=== PATIENT | male | born 1980 ===

== ENCOUNTER 2016-11-22 18:11 | Inpatient (IN) | payer MEDICAID, SELFPAY ==
[2016-11-22 18:11] VITALS: BMI 21.5
[2016-11-22] MEDS ORDERED: Iohexol 240 (50 ml) PO ONE (18:37)
[2016-11-22] MEDS ORDERED: Iohexol 240 (50 ml) ONE (18:51)
--- NOTE | 2016-11-22 19:00 | ED PDOC ---
HPI: Abdomen Time Seen by Provider: 11/22/16 18:23 Chief Complaint (Nursing): Abdominal Pain Chief Complaint (Provider): Abdominal Pain History Per: Patient History/Exam Limitations: no limitations Onset/Duration Of Symptoms: Days (x2 days) Current Symptoms Are (Timing): Still Present Additional Complaint(s): 36 y/o male with a past medical history of diverticulitis and pre-diabetes presents to the emergency department with a complaint of a lower abdominal pain x2 days. Associated with tactile fever as per history from . Patient states pain had worsened since onset, is constant, and similar to pain when he had diverticulitis. Reports taking Percocet and Amoxicillin (left over from previous conditions)with no relief. Denies nausea, vomiting, diarrhea, constipation, or urinary symptom. PMD: [facility] Past Medical History Reviewed: Historical Data, Nursing Documentation, Vital Signs Vital Signs: Last Vital Signs Temp 98.7 F 11/22/16 22:43 Pulse 88 11/22/16 22:43 Resp 20 11/22/16 22:43 BP 135/82 11/22/16 22:43 Pulse Ox 98 11/22/16 21:33 - Medical History PMH: Diabetes (Border line), Diverticulitis, Migraine Denies: HIV, Hypercholesterolemia, Chronic Kidney Disease - Surgical History Surgical History: No Surg Hx - Family History Family History: States: Diabetes - Social History Current smoker - smoking cessation education provided: No Alcohol: None Drugs: Denies - Home Medications Home Medications: Ambulatory Orders Medication Instructions Recorded No Known Home Med 11/22/16 - Allergies Allergies/Adverse Reactions: Allergies Allergy/AdvReac Type Severity Reaction Status Date / Time FISH Allergy RASH Verified 11/22/16 18:18 Fish Containing Products Allergy RASH Verified 11/22/16 18:18 Review of Systems ROS Statement: Except As Marked, All Systems Reviewed And Found Negative Constitutional: Positive for: Fever (Tactile) Gastrointestinal: Positive for: Abdominal Pain (Lower). Negative for: Vomiting , Diarrhea, Constipation Genitourinary Male: Negative for: Dysuria, Frequency, Incontinence, Hematuria Physical Exam - Reviewed Nursing Documentation Reviewed: Yes Vital Signs Reviewed: Yes - Physical Exam Appears: Positive for: Well, Non-toxic, In Acute Distress (Mild painful distress ) Head Exam: Positive for: ATRAUMATIC, NORMOCEPHALIC Skin: Positive for: Normal Color, Warm, Dry ENT: Positive for: Normal ENT Inspection. Negative for: Pharyngeal Erythema Neck: Positive for: Normal, Supple Cardiovascular/Chest: Positive for: Regular Rate, Rhythm. Negative for: Tachycardia Respiratory: Positive for: Normal Breath Sounds. Negative for: Accessory Muscle Use, Respiratory Distress Gastrointestinal/Abdominal: Positive for: Soft, Tenderness (Tenderness to the suprapubic region and lower quadrant bilaterally), Guarding (Diffuse Voluntary) . Negative for: Mass, Distended, Rebound Extremity: Positive for: Normal ROM. Negative for: Pedal Edema Neurologic/Psych: Positive for: Alert, Oriented - Laboratory Results Result Diagrams: 11/22/16 18:55 11/22/16 18:55 - ECG O2 Sat by Pulse Oximetry: 98 (RA) Pulse Ox Interpretation: Normal Medical Decision Making Medical Decision Making: : Time: 18:23 Initial impression: Abdominal Pain differential include but not limited to diverticulitis, appendicitis, colitis, and urinary tract infection. Initial plan: --Abd Pelvis IV CT --COMP Metabolic Panel --Lact Acid, Plasma Stat --Lipase Stat --ED urine Dipstick (POC) --CBC w/ differential --Partial Thromboplastin Time (COAG) --Prothrombin Time (COAG) --Omnipaque 50 mL --Toradol 30 mg IV --Blood Culture Stat --IV Insertion Accession No. : [id number] Patient Name / ID : PAM LINDO / [id number] Exam Date : 11/22/2016 20:48:59 ( Approved ) Study Comment : Sex / Age : M / 36Y Creator : Indra Manzano MD Dictator : Therapeutic Massage Technician : Insurance Underwriting Assistant : Indra Manzano MD Approver2 : Report Date : 11/22/2016 20:59:00 My Comment : [facility] Division of Radiology [address] [place] [address] Tel. no. Patient Name: BELGICA OROZCO Pt. Address: [address] [place] [address] Rec #: [id number] [place] [address]: Shiv MELENDEZ, Georgiana Fair Pt CELL Order Location: ALFONSO : 1980 Male Age: 36 Order #: [id number] Reason for exam: abd pain CT Scan ABD PELVIS IV CONTRAST ONLY Exam Date: 11/22/16 This imaging exam was performed at [facility] ADDENDUM Addendum created by Indra Manzano MD on 11/22/2016 9:04:44 PM EDT Kidneys and ureters: Too small to characterize lesion within RIGHT kidney. No hydronephrosis. Initial report created on 11/22/2016 8:59:36 PM EDT EXAM: CT Abdomen and Pelvis With Intravenous Contrast CLINICAL HISTORY: 36 years old, male; Pain; Abdominal pain; Other: Bilateral lower abd pain TECHNIQUE: Axial computed tomography images of the abdomen and pelvis with intravenous contrast. This CT exam was performed using one or more of the following dose reduction techniques: automated exposure control, adjustment of the mA and/or kV according to patient size, and/or use of iterative reconstruction technique. Coronal and sagittal reformatted images were created and reviewed. CONTRAST: 100 mL of [id number] administered intravenously. COMPARISON: No relevant prior studies available. FINDINGS: Lower thorax: Mild atelectasis. ABDOMEN: Liver: Mild fatty infiltration. Too small to characterize lesion. Gallbladder and bile ducts: No calcified stones. No ductal dilation. Pancreas: No ductal dilation. No mass. Spleen: No splenomegaly. Adrenals: No mass. Kidneys and ureters: No mass. No hydronephrosis. Stomach and bowel: Few diverticula within sigmoid colon. Mild mural thickening of short segment of proximal sigmoid colon. Xtuu-aq-[id number] stranding within adjacent fat. No obstruction. Appendix: Normal caliber. No inflammation. PELVIS: Bladder: Unremarkable. Reproductive: Unremarkable as visualized. ABDOMEN and PELVIS: Intraperitoneal space: No significant fluid collection. No free air. Bones/joints: No acute fracture. Soft tissues: Unremarkable. Vasculature: Unremarkable. No abdominal aortic aneurysm. Lymph nodes: No pathologically enlarged lymph nodes. IMPRESSION: 1. Findings compatible with acute diverticulitis of sigmoid colon. Recommend endoscopy following resolution. 2. Incidental/non-acute findings are described above. Addendum Dictated By: Indra Manzano MD Addendum Dictated Date Time:11/22/1602/02/2104 Addendum Signed by:Indra Manzano MD Addendum signed Date Time: 11/22/162103 Addendum Transcribed By: PAVAN Addendum Transcribed Date Time: 11/22/1602/02/2104 AC02/VALERIO EXAM: CT Abdomen and Pelvis With Intravenous Contrast CLINICAL HISTORY: 36 years old, male; Pain; Abdominal pain; Other: Bilateral lower abd pain TECHNIQUE: Axial computed tomography images of the abdomen and pelvis with intravenous contrast. This CT exam was performed using one or more of the following dose reduction techniques: automated exposure control, adjustment of the mA and/or kV according to patient size, and/or use of iterative reconstruction technique. Coronal and sagittal reformatted images were created and reviewed. CONTRAST: 100 mL of [id number] administered intravenously. COMPARISON: No relevant prior studies available. FINDINGS: Lower thorax: Mild atelectasis. ABDOMEN: Liver: Mild fatty infiltration. Too small to characterize lesion. Gallbladder and bile ducts: No calcified stones. No ductal dilation. Pancreas: No ductal dilation. No mass. Spleen: No splenomegaly. Adrenals: No mass. Kidneys and ureters: No mass. No hydronephrosis. Stomach and bowel: Few diverticula within sigmoid colon. Mild mural thickening of short segment of proximal sigmoid colon. Xjef-yv-eyvuqzox stranding within adjacent fat. No obstruction. Appendix: Normal caliber. No inflammation. PELVIS: Bladder: Unremarkable. Reproductive: Unremarkable as visualized. ABDOMEN and PELVIS: Intraperitoneal space: No significant fluid collection. No free air. Bones/joints: No acute fracture. Soft tissues: Unremarkable. Vasculature: Unremarkable. No abdominal aortic aneurysm. Lymph nodes: No pathologically enlarged lymph nodes. IMPRESSION: 1. Findings compatible with acute diverticulitis of sigmoid colon. Recommend endoscopy following resolution. 2. Incidental/non-acute findings are described above. Dictated By: Indra Manzano MD Dictated Date/Time: 11/22/162058 Signed By: Indra Manzano MD Date Signed: 2058 Transcribed By: PAVAN Transcribe Date/Time : 11/22/162058 ACYP02/VRD On reeval pt persists, especially with palpation, movement. DW pt findings. Pt to be hospitalized for diverticulitis with severe pain. SORAYA Ndiaye FP resident. Scribe Attestation: Documented by Ana Leal, acting as a scribe for Georgiana Chaney MD. Provider Scribe Attestation: All medical record entries made by the Scribe were at my direction and personally dictated by me. I have reviewed the chart and agree that the record accurately reflects my personal performance of the history, physical exam, medical decision making, and the department course for this patient. I have also personally directed, reviewed, and agree with the discharge instructions and disposition. ED OBSERVATION Date of observation admission: 11/22/16 Time of observation admission: 18:41 - Observation admission statement Patient is being placed in observation because:: Abdominal pain. - Goals of Observation Goals of observation are:: extensive] work-up and serial abdominal exam. Disposition - Clinical Impression Clinical Impression: Abdominal pain, Diverticulitis Counseled Patient/Family Regarding: Studies Performed, Diagnosis - Disposition Disposition Time: 18:45 Condition: FAIR - Pt Status Changed To: Hospital Disposition Of: Observation - POA Present On Arrival: None
[2016-11-22 19:04] LABS: BASO # 0.1 K/uL (0.0-0.2); BASO % 0.5 % (0.0-2.0); EOS # 0.3 K/uL (0.0-0.7); EOS % 2.2 % (0.0-4.0); HEMATOCRIT 42.4 % (35.0-51.0); LYMPH # 2.5 K/uL (1.0-4.3); LYMPH % 18.6 % (20.0-40.0); MEAN CELL VOLUME 82.4 fl (80.0-94.0); MEAN CORPUSCULAR HEMOGLOBIN 28.4 pg (27.0-31.0); MEAN CORPUSCULAR HGB CONC 34.4 g/dL (33.0-37.0); MEAN PLATELET VOLUME 9.4 fl (7.2-11.7); MONO # 1.5 K/uL (0.0-0.8); MONO % 11.3 % (0.0-10.0); NEUT # 9.2 K/uL (1.8-7.0); NEUT % 67.4 % (50.0-75.0); NRBC % 0.1 % (0.0-0.0); RED CELL DISTRIBUTION WIDTH 13.5 % (11.5-14.5); WHITE BLOOD COUNT 13.6 K/uL (4.8-10.8)
[2016-11-22] MEDS ORDERED: Ampicillin/Sulbactam 3 GM in Sodium Chloride 0.9% 100 ML IVPB STA (19:13)
[2016-11-22 19:17] LABS: ALB/GLOB RATIO 1.2 (1.0-2.1); ALKALINE PHOSPHATASE 88 U/L (38-126); ALT/SGPT 37 U/L (21-72); AST/SGOT 22 U/L (17-59); BILIRUBIN,TOTAL 0.3 mg/dl (0.2-1.3); BLOOD UREA NITROGEN 17 mg/dl (9-20); CARBON DIOXIDE 25 mmol/L (22-30); CHLORIDE 104 mmol/L (98-107); GFR AFRICAN-AMERICAN > 60; GLUCOSE,RANDOM 100 mg/dL (75-110); LIPASE 34 U/L (23-300); POTASSIUM 3.8 MMOL/L (3.6-5.0); SODIUM 142 mmol/l (132-148); TOTAL PROTEIN 7.6 G/DL (6.3-8.2)
[2016-11-22] MEDS ORDERED: Sodium Chloride 0.9% 50 ML IV ONE (19:24)
[2016-11-22] MEDS ORDERED: Iohexol 300 100 ML IJ ONE (19:24)
[2016-11-22 19:49] LABS: PARTIAL THROMBOPLASTIN TIME 27.5 SECONDS (23.3-32.5)
--- NOTE | 2016-11-22 21:00 | CT ---
EXAM: CT Abdomen and Pelvis With Intravenous Contrast CLINICAL HISTORY: 36 years old, male; Pain; Abdominal pain; Other: Bilateral lower abd pain TECHNIQUE: Axial computed tomography images of the abdomen and pelvis with intravenous contrast. This CT exam was performed using one or more of the following dose reduction techniques: automated exposure control, adjustment of the mA and/or kV according to patient size, and/or use of iterative reconstruction technique. Coronal and sagittal reformatted images were created and reviewed. CONTRAST: 100 mL of [id number] administered intravenously. COMPARISON: No relevant prior studies available. FINDINGS: Lower thorax: Mild atelectasis. ABDOMEN: Liver: Mild fatty infiltration. Too small to characterize lesion. Gallbladder and bile ducts: No calcified stones. No ductal dilation. Pancreas: No ductal dilation. No mass. Spleen: No splenomegaly. Adrenals: No mass. Kidneys and ureters: No mass. No hydronephrosis. Stomach and bowel: Few diverticula within sigmoid colon. Mild mural thickening of short segment of proximal sigmoid colon. Vzzi-wx-brovazbk stranding within adjacent fat. No obstruction. Appendix: Normal caliber. No inflammation. PELVIS: Bladder: Unremarkable. Reproductive: Unremarkable as visualized. ABDOMEN and PELVIS: Intraperitoneal space: No significant fluid collection. No free air. Bones/joints: No acute fracture. Soft tissues: Unremarkable. Vasculature: Unremarkable. No abdominal aortic aneurysm. Lymph nodes: No pathologically enlarged lymph nodes. IMPRESSION: 1. Findings compatible with acute diverticulitis of sigmoid colon. Recommend endoscopy following resolution. 2. Incidental/non-acute findings are described above.
[2016-11-22] MEDS ORDERED: Sodium Chloride 0.9% 1,000 ML IV STA (21:36)
--- NOTE | 2016-11-22 22:48 | CP.PCM.HP ---
History of Present Illness - History of Present Illness History of Present Illness: Pt is a 36 y/o male with a past medical history of diverticulitis (3yrs ago) and pre-diabetes presents to the emergency department with a complaint of a lower abdominal pain for the past 2 days. Associated with tactile fever as per history from . Patient states pain had worsened since onset, is constant, and similar to pain when he had diverticulitis. states he tooks some Percocet and Amoxicillin (left over from previous conditions)with no relief. Denies nausea, vomiting, diarrhea, constipation, or urinary symptom PCP- [facility] Present on Admission - Present on Admission Any Indicators Present on Admission: No Review of Systems - Review of Systems All systems: reviewed and no additional remarkable complaints except Review of Systems: Per HPI Past Patient History - Infectious Disease Hx of Infectious Diseases: None - Tetanus Immunizations Tetanus Immunization: Unknown - Past Medical History & Family History Past Medical History?: Yes - Past Social History Alcohol: None Drugs: Denies - CARDIAC Hx Cardiac Disorders: No - PULMONARY Hx Respiratory Disorders: No - NEUROLOGICAL Hx Neurological Disorder: Yes - HEENT Hx HEENT Problems: No - RENAL Hx Chronic Kidney Disease: No - ENDOCRINE/METABOLIC Hx Endocrine Disorders: No - HEMATOLOGICAL/ONCOLOGICAL Hx Blood Disorders: No - INTEGUMENTARY Hx Dermatological Problems: No - MUSCULOSKELETAL/RHEUMATOLOGICAL Hx Musculoskeletal Disorders: No - GASTROINTESTINAL Hx Diverticulitis: Yes - GENITOURINARY/GYNECOLOGICAL Hx Genitourinary Disorders: No - PSYCHIATRIC Hx Psychophysiologic Disorder: No - SURGICAL HISTORY Hx Surgeries: No - ANESTHESIA Hx Anesthesia: No Meds Allergies/Adverse Reactions: Allergies Allergy/AdvReac Type Severity Reaction Status Date / Time FISH Allergy RASH Verified 11/22/16 18:18 Fish Containing Products Allergy RASH Verified 11/22/16 18:18 Physical Exam - Constitutional Appears: Non-toxic, No Acute Distress - Head Exam Head Exam: NORMOCEPHALIC - Eye Exam Eye Exam: Normal appearance - ENT Exam ENT Exam: Mucous Membranes Moist - Respiratory Exam Respiratory Exam: Clear to Auscultation Bilateral, NORMAL BREATHING PATTERN. absent: Rhonchi, Wheezes - Cardiovascular Exam Cardiovascular Exam: REGULAR RHYTHM, +S1, +S2 - GI/Abdominal Exam GI & Abdominal Exam: Normal Bowel Sounds, Soft, Tenderness. absent: Distended, Guarding - Extremities Exam Extremities exam: Negative for: calf tenderness, pedal edema - Neurological Exam Neurological exam: Alert, CN II-XII Intact, Oriented x3 Results - Vital Signs Recent Vital Signs: Last Vital Signs Temp 98.7 F 11/22/16 22:43 Pulse 88 11/22/16 22:43 Resp 20 11/22/16 22:43 BP 135/82 11/22/16 22:43 Pulse Ox 98 11/22/16 21:33 - Labs Result Diagrams: 11/22/16 18:55 11/22/16 18:55 Labs: Laboratory Results - last 24 hr 11/22/16 11/22/16 11/22/16 18:55 18:55 18:55 WBC 13.6 H RBC 5.14 Hgb 14.6 Hct 42.4 MCV 82.4 MCH 28.4 MCHC 34.4 RDW 13.5 Plt Count 285 MPV 9.4 Neut % (Auto) 67.4 Lymph % (Auto) 18.6 L Rincon % (Auto) 11.3 H Eos % (Auto) 2.2 Baso % (Auto) 0.5 Neut # 9.2 H Lymph # 2.5 Rincon # 1.5 H Eos # 0.3 Baso # 0.1 PT INR APTT Sodium 142 Potassium 3.8 Chloride 104 Carbon Dioxide 25 Anion Gap 17 BUN 17 Creatinine 0.9 Est GFR ( Amer) > 60 Est GFR (Non-Af Amer) > 60 Random Glucose 100 Lactic Acid 1.1 Calcium 9.0 Total Bilirubin 0.3 AST 22 ALT 37 Alkaline Phosphatase 88 Total Protein 7.6 Albumin 4.2 Globulin 3.4 Albumin/Globulin Ratio 1.2 Lipase 34 11/22/16 18:55 WBC RBC Hgb Hct MCV MCH MCHC RDW Plt Count MPV Neut % (Auto) Lymph % (Auto) Rincon % (Auto) Eos % (Auto) Baso % (Auto) Neut # Lymph # Rincon # Eos # Baso # PT 9.9 INR 0.95 APTT 27.5 Sodium Potassium Chloride Carbon Dioxide Anion Gap BUN Creatinine Est GFR ( Amer) Est GFR (Non-Af Amer) Random Glucose Lactic Acid Calcium Total Bilirubin AST ALT Alkaline Phosphatase Total Protein Albumin Globulin Albumin/Globulin Ratio Lipase Assessment & Plan - Assessment and Plan (Free Text) Assessment: 36 y/o with previous history of diverticulitis being admitted for diverticulitis with no associated sepsis Plan: Diverticulitis CT imaging positive for diverticulitis in sigmoid colon Started on Cipro/flagyl received a dose of Ampicillin in ED IV fluids- received a bolus in ED, then D5NS at 100cc/hr Pain control with Toradol 30 Q6hr for pain level 8-10, 15 Q6hrs pain level 4-7 Repeat Cbc in the am Diet- NPO, till pain resolve Dvt prophylaxis- SCDs (low risk)
[2016-11-23] MEDS: metroNIDAZOLE 500mg/100ml NS 100 ML IVPB SCH ×3 (00:30→16:27)
[2016-11-23 06:21] LABS: HEMATOCRIT 40.5 % (35.0-51.0); MEAN CELL VOLUME 82.6 fl (80.0-94.0); MEAN CORPUSCULAR HEMOGLOBIN 28.3 pg (27.0-31.0); MEAN CORPUSCULAR HGB CONC 34.3 g/dL (33.0-37.0); RED CELL DISTRIBUTION WIDTH 13.5 % (11.5-14.5); WHITE BLOOD COUNT 12.8 K/uL (4.8-10.8)
[2016-11-23] MEDS: Dextrose 5%/0.9% NS 1,000 ML IV SCH ×3 (06:34→20:58)
[2016-11-23] MEDS ORDERED: levoFLOXacin 750 mg in D5W 750 MG/150 ML BAG IVPB SCH (09:00)
[2016-11-23] MEDS ORDERED: levoFLOXacin 750 mg in D5W 150 ML BAG IVPB SCH (09:00)
[2016-11-23] MEDS ORDERED: Lidocaine 5% Patch TD PRN (11:49)
--- NOTE | 2016-11-23 12:53 | CP.PCM.PN ---
Subjective - Date & Time of Evaluation Date of Evaluation: 11/23/16 Time of Evaluation: 07:15 - Subjective Subjective: This is a 36 y/o with history of diverticulosis with 2 previous episodes of diverticulitis admitted for recurrent acute diverticultis IV antibiotics management. Patient was seen and examined at bedside this morning. Still complaining of lower abdominal pain, mostly in his left lower abdominal, 3/10, and constant. Patient reports that the pain is worse with self- palpation of LLQ, increasing intensity to 7/10. Denies nausea, vomiting, chills, diarrheas or other complains. Objective - Vital Signs/Intake and Output Vital Signs (last 24 hours): Temp Pulse Resp BP Pulse Ox 98.7 F 91 H 20 133/81 100 11/23/16 07:27 11/23/16 07:27 11/23/16 07:27 11/23/16 07:27 11/23/16 07:27 - Medications Medications: Current Medications Metronidazole (Flagyl 500mg/100ml Ns) 100 mls @ 100 mls/hr IVPB Q8 BRENDA Last Admin: 11/23/16 08:24 Dose: 100 mls/hr Ciprofloxacin (Cipro 400mg/200ml Dsw) 400 mg in 200 mls @ 200 mls/hr IVPB Q12 BRENDA Dextrose/Sodium Chloride (Dextrose 5%/0.9% Ns 1000 Ml) 1,000 mls @ 125 mls/hr IV .Q8H [facility] Stop: 11/23/16 23:24 Last Admin: 11/23/16 06:34 Dose: Not Given Ketorolac Tromethamine (Toradol) 30 mg IVP Q6 PRN PRN Reason: Pain, severe (8-10) Ketorolac Tromethamine (Toradol) 15 mg IVP Q6 PRN PRN Reason: Pain, moderate (4-7) Lidocaine (Lidoderm) 1 ea TD DAILY [facility] - Labs Labs: 11/23/16 05:35 11/22/16 18:55 PT 9.9 SECONDS (9.6-11.2) 11/22/16 18:55 INR 0.95 (0.92-1.08) 11/22/16 18:55 APTT 27.5 SECONDS (23.3-32.5) 11/22/16 18:55 - Constitutional Appears: Non-toxic, No Acute Distress - Eye Exam Eye Exam: Normal appearance - ENT Exam ENT Exam: Mucous Membranes Moist - Respiratory Exam Respiratory Exam: Clear to Ausculation Bilateral, NORMAL BREATHING PATTERN - Cardiovascular Exam Cardiovascular Exam: REGULAR RHYTHM, +S1, +S2 - GI/Abdominal Exam GI & Abdominal Exam: Soft, Tenderness (Moderate tender to palpation of LLQ, RLQ and Hypogastrium, but no rigidity or guarding noted, no rebound tenderness), Normal Bowel Sounds - Extremities Exam Extremities Exam: Normal Inspection. absent: Calf Tenderness, Full ROM - Back Exam Back Exam: absent: CVA tenderness (L), CVA tenderness (R) - Neurological Exam Neurological Exam: Alert, Awake, Oriented x3 - Psychiatric Exam Psychiatric exam: Normal Affect, Normal Mood Assessment and Plan - Assessment and Plan (Free Text) Assessment: This is a 36 y/o Male with PMHx of diverticulosis, and recurrent episodes of acute diverticulitis who was admitted for IV antibiotics to manage third episode of diverticulitis. Plan: Plan: Acute diverticulitis -Afebrile, no Tachycardic -Persistent leukocytosis CBC -NPO for now, will consider to advance diet base on clinical improvement -Abdominal Ct scan showed : acute diverticulitis of sigmoid colon -IV Hydration Dextrose 5%/NS 0.9 % -c/w Cipro 400 mg IV Q12 hrs Day #1 -c/w Flagyl 500 IV Q8 hours Day #1 -C/w with pain management w/Toradol PRN -F/U blood culture -F/U CBC, and BMP on 11/24/16 -General surgery consult appreciated due to recurrent acute diverticulitis -Consider GI consult and General surgery consult as outpatient for further management DVT prophylaxis SCDs while in bed, patient is ambulating, and low risk for DVT
[2016-11-23] MEDS: Ciprofloxacin 400mg/200ml D5W 400 MG/200 ML BAG IVPB SCH ×2 (12:56→20:58)
[2016-11-23] MEDS: Lidocaine 5% Patch TD SCH (12:57)
--- NOTE | 2016-11-23 13:59 | CP.PCM.CON ---
<Meliza Astorga - Last Filed: 11/23/16 13:56> History of Present Illness - History of Present Illness History of Present Illness: General Surgery - Dr. White 36 yo M w/ hx of diverticulitis 3 years ago, presents w/ LLQ abdominal pain since Wednesday. Pt states the pain came on gradually, was located in the LLQ and suprapubic region, non-radiating, 8/10 at worst. He describes it as similar to his previous episode of diverticulitis. Pt also complains of a headache and admits to a subjective fever at home. He denies any Nausea/Vomiting, Chills, Diarrhea, Constipation, Dysuria, Hematuria, Hematochezia. He states last BM was this morning and was normal. PMH: pre-diabetic, Diverticulitis 3 yrs ago PSH: Colonoscopy in July 2016 which showed internal hemorrhoids Allergy to Fish Review of Systems - Review of Systems All systems: reviewed and no additional remarkable complaints except (as per HPI ) Past Patient History - Infectious Disease Hx of Infectious Diseases: None - Tetanus Immunizations Tetanus Immunization: Unknown - Past Medical History & Family History Past Medical History?: Yes - Past Social History Smoking Status: Never Smoked - CARDIAC Hx Cardiac Disorders: No - PULMONARY Hx Respiratory Disorders: No - NEUROLOGICAL Hx Neurological Disorder: Yes - HEENT Hx HEENT Problems: No - RENAL Hx Chronic Kidney Disease: No - ENDOCRINE/METABOLIC Hx Endocrine Disorders: Yes Other/Comment: pre -diabetes - HEMATOLOGICAL/ONCOLOGICAL Hx Blood Disorders: No - INTEGUMENTARY Hx Dermatological Problems: No - MUSCULOSKELETAL/RHEUMATOLOGICAL Hx Falls: No - GASTROINTESTINAL Hx Diverticulitis: Yes - GENITOURINARY/GYNECOLOGICAL Hx Genitourinary Disorders: No - PSYCHIATRIC Hx Substance Use: No - SURGICAL HISTORY Hx Surgeries: No - ANESTHESIA Hx Anesthesia: No Hx Anesthesia Reactions: No Meds Allergies/Adverse Reactions: Allergies Allergy/AdvReac Type Severity Reaction Status Date / Time FISH Allergy RASH Verified 11/22/16 18:18 Fish Containing Products Allergy RASH Verified 11/22/16 18:18 - Medications Medications: Current Medications Metronidazole (Flagyl 500mg/100ml Ns) 100 mls @ 100 mls/hr IVPB Q8 [facility] Last Admin: 11/23/16 08:24 Dose: 100 mls/hr Ciprofloxacin (Cipro 400mg/200ml Dsw) 400 mg in 200 mls @ 200 mls/hr IVPB Q12 [facility] Last Admin: 11/23/16 12:56 Dose: 200 mls/hr Dextrose/Sodium Chloride (Dextrose 5%/0.9% Ns 1000 Ml) 1,000 mls @ 125 mls/hr IV .Q8H [facility] Stop: 11/23/16 23:24 Last Admin: 11/23/16 06:34 Dose: Not Given Ketorolac Tromethamine (Toradol) 30 mg IVP Q6 PRN PRN Reason: Pain, severe (8-10) Ketorolac Tromethamine (Toradol) 15 mg IVP Q6 PRN PRN Reason: Pain, moderate (4-7) Lidocaine (Lidoderm) 1 ea TD DAILY [facility] Last Admin: 11/23/16 12:57 Dose: 1 ea Physical Exam - Constitutional Appears: Well, No Acute Distress - Head Exam Head Exam: ATRAUMATIC, NORMAL INSPECTION, NORMOCEPHALIC - Eye Exam Eye Exam: EOMI, Normal appearance - ENT Exam ENT Exam: Mucous Membranes Moist - Respiratory Exam Respiratory Exam: NORMAL BREATHING PATTERN. absent: Respiratory Distress - Cardiovascular Exam Cardiovascular Exam: REGULAR RHYTHM - GI/Abdominal Exam GI & Abdominal Exam: Distended (mild), Guarding, Rebound, Soft, Tenderness (LLQ , RLQ and Suprapubic region). absent: Hernia, Rigid - Neurological Exam Neurological exam: Alert, Oriented x3 - Psychiatric Exam Psychiatric exam: Normal Affect, Normal Mood - Skin Skin Exam: Dry Results - Vital Signs Recent Vital Signs: Last Vital Signs Temp 98.7 F 11/23/16 07:27 Pulse 91 H 11/23/16 07:27 Resp 20 11/23/16 07:27 BP 133/81 11/23/16 07:27 Pulse Ox 100 11/23/16 07:27 - Labs Result Diagrams: 11/23/16 05:35 11/22/16 18:55 Labs: Laboratory Results - last 24 hr 11/22/16 11/22/16 11/22/16 18:55 18:55 18:55 WBC 13.6 H RBC 5.14 Hgb 14.6 Hct 42.4 MCV 82.4 MCH 28.4 MCHC 34.4 RDW 13.5 Plt Count 285 MPV 9.4 Neut % (Auto) 67.4 Lymph % (Auto) 18.6 L Mcclain % (Auto) 11.3 H Eos % (Auto) 2.2 Baso % (Auto) 0.5 Neut # 9.2 H Lymph # 2.5 Mcclain # 1.5 H Eos # 0.3 Baso # 0.1 PT INR APTT Sodium 142 Potassium 3.8 Chloride 104 Carbon Dioxide 25 Anion Gap 17 BUN 17 Creatinine 0.9 Est GFR ( Amer) > 60 Est GFR (Non-Af Amer) > 60 Random Glucose 100 Lactic Acid 1.1 Calcium 9.0 Total Bilirubin 0.3 AST 22 ALT 37 Alkaline Phosphatase 88 Total Protein 7.6 Albumin 4.2 Globulin 3.4 Albumin/Globulin Ratio 1.2 Lipase 34 11/22/16 11/23/16 18:55 05:35 WBC 12.8 H RBC 4.91 Hgb 13.9 Hct 40.5 MCV 82.6 MCH 28.3 MCHC 34.3 RDW 13.5 Plt Count 255 MPV Neut % (Auto) Lymph % (Auto) Mcclain % (Auto) Eos % (Auto) Baso % (Auto) Neut # Lymph # Mcclain # Eos # Baso # PT 9.9 INR 0.95 APTT 27.5 Sodium Potassium Chloride Carbon Dioxide Anion Gap BUN Creatinine Est GFR ( Amer) Est GFR (Non-Af Amer) Random Glucose Lactic Acid Calcium Total Bilirubin AST ALT Alkaline Phosphatase Total Protein Albumin Globulin Albumin/Globulin Ratio Lipase - Imaging and Cardiology CT scan - abdomen Status: Image reviewed by me, Report reviewed by me Assessment & Plan - Assessment and Plan (Free Text) Assessment: 36 yo M w/ recurrent acute diverticulitis, uncomplicated -Maintain NPO, IVF -IV Abx - Cipro/Flagyl -Pain control -Poss. Clear liquids tomorrow if improving -Recc. GI consult for F/U, may need repeat colonoscopy -No acute surgical plans, will follow SORAYA Astorga PGY2 <Guillermo White - Last Filed: 11/25/16 22:04> Results - Vital Signs Recent Vital Signs: Last Vital Signs Temp 98.1 F 11/25/16 08:08 Pulse 71 11/25/16 08:08 Resp 20 11/25/16 08:08 BP 134/90 11/25/16 08:08 Pulse Ox 99 11/25/16 08:08 - Labs Result Diagrams: 11/25/16 05:45 11/25/16 05:45 Labs: Laboratory Results - last 24 hr 11/25/16 11/25/16 05:45 05:45 WBC 8.3 RBC 4.89 Hgb 13.6 Hct 41.3 MCV 84.4 MCH 27.9 MCHC 33.0 RDW 13.3 Plt Count 301 Potassium 3.8 Attending/Attestation - Attestation I have personally seen and examined this patient.: Yes I have fully participated in the care of the patient.: Yes I have reviewed all pertinent clinical information: Yes Notes (Text): 11/25/16 22:03 Pt was seen and examined at bedside on 11/24/16 Agree with above note and assessment. Pt with Sigmoid Diverticulitis Improving clinically C.w current mx Plan d.w pt in detail We will f.u
[2016-11-24] MEDS: metroNIDAZOLE 500mg/100ml NS 100 ML IVPB SCH ×3 (01:21→16:23)
[2016-11-24] MEDS: Dextrose 5%/0.9% NS 1,000 ML IV SCH (01:47)
[2016-11-24 06:51] LABS: MEAN CELL VOLUME 83.1 fl (80.0-94.0); MEAN CORPUSCULAR HEMOGLOBIN 28.1 pg (27.0-31.0); MEAN CORPUSCULAR HGB CONC 33.8 g/dL (33.0-37.0); RED CELL DISTRIBUTION WIDTH 13.4 % (11.5-14.5); WHITE BLOOD COUNT 8.8 K/uL (4.8-10.8)
[2016-11-24 07:13] LABS: ALB/GLOB RATIO 1.4 (1.0-2.1); ALKALINE PHOSPHATASE 53 U/L (38-126); ALT/SGPT 29 U/L (21-72); AST/SGOT 20 U/L (17-59); BILIRUBIN,TOTAL 0.4 mg/dl (0.2-1.3); BLOOD UREA NITROGEN 10 mg/dl (9-20); CALCIUM 8.3 mg/dL (8.4-10.2); CARBON DIOXIDE 24 mmol/L (22-30); CHLORIDE 106 mmol/L (98-107); GFR AFRICAN-AMERICAN > 60; GLUCOSE,RANDOM 115 mg/dL (75-110); POTASSIUM 3.2 MMOL/L (3.6-5.0); SODIUM 144 mmol/l (132-148); TOTAL PROTEIN 6.4 G/DL (6.3-8.2)
--- NOTE | 2016-11-24 07:40 | CP.PCM.PN ---
<Alberto Stallworth - Last Filed: 11/24/16 07:36> Subjective - Date & Time of Evaluation Date of Evaluation: 11/24/16 Time of Evaluation: 07:37 - Subjective Subjective: General Surgery Progress Note For Dr. White This 36M was seen and examined this AM at bedside. Nurse reports no acute events overnight. Patient reports that he is no longer feeling pain. He required one dose of toradol overnight and it was due to a headache. He denies any fevers, chills, chest pain, SOB nausea vomiting or diarrhea. Objective - Vital Signs/Intake and Output Vital Signs (last 24 hours): Temp Pulse Resp BP Pulse Ox 98.5 F 73 19 136/83 98 11/24/16 00:56 11/24/16 00:56 11/24/16 00:56 11/24/16 00:56 11/24/16 00:56 - Medications Medications: Current Medications Acetaminophen (Tylenol 325mg Tab) 650 mg PO Q6 PRN PRN Reason: Pain, moderate (4-7) Metronidazole (Flagyl 500mg/100ml Ns) 100 mls @ 100 mls/hr IVPB Q8 [facility] Last Admin: 11/24/16 01:21 Dose: 100 mls/hr Ciprofloxacin (Cipro 400mg/200ml Dsw) 400 mg in 200 mls @ 200 mls/hr IVPB Q12 [facility] Last Admin: 11/23/16 20:58 Dose: 200 mls/hr Potassium Chloride (Potassium Chloride 10 Meq/100 Ml) 100 mls @ 100 mls/hr IVPB Q1 [facility] Stop: 11/24/16 09:59 Ketorolac Tromethamine (Toradol) 30 mg IVP Q6 PRN PRN Reason: Pain, severe (8-10) Last Admin: 11/24/16 01:50 Dose: 30 mg Ketorolac Tromethamine (Toradol) 15 mg IVP Q6 PRN PRN Reason: Pain, moderate (4-7) Last Admin: 11/23/16 16:39 Dose: 15 mg Lidocaine (Lidoderm) 1 ea TD DAILY [facility] Last Admin: 11/23/16 12:57 Dose: 1 ea - Labs Labs: 11/24/16 05:25 11/24/16 05:25 PT 9.9 SECONDS (9.6-11.2) 11/22/16 18:55 INR 0.95 (0.92-1.08) 11/22/16 18:55 APTT 27.5 SECONDS (23.3-32.5) 11/22/16 18:55 - Constitutional Appears: Non-toxic, No Acute Distress - Head Exam Head Exam: ATRAUMATIC, NORMOCEPHALIC - Eye Exam Eye Exam: EOMI - ENT Exam ENT Exam: Mucous Membranes Moist, Normal Exam - Respiratory Exam Respiratory Exam: NORMAL BREATHING PATTERN - Cardiovascular Exam Cardiovascular Exam: REGULAR RHYTHM - GI/Abdominal Exam GI & Abdominal Exam: Soft. absent: Firm, Guarding, Rigid, Tenderness - Neurological Exam Neurological Exam: Alert, Awake - Psychiatric Exam Psychiatric exam: Normal Affect, Normal Mood - Skin Skin Exam: Dry, Intact Assessment and Plan - Assessment and Plan (Free Text) Assessment: 36 yo M w/ recurrent acute diverticulitis, which is showing signs of resolution patient with potassium of 3.2 today -CLD -Mag level ordered 2 K-Riders -IV Abx -Cipro/Flagyl -Pain control -Recc. GI consult for F/U, may need repeat colonoscopy -No acute surgical plans, will follow SORAYA Stallworth PGY-7 <Guillermo White - Last Filed: 11/25/16 22:06> Objective - Vital Signs/Intake and Output Vital Signs (last 24 hours): Temp Pulse Resp BP Pulse Ox 98.1 F 71 20 134/90 99 11/25/16 08:08 11/25/16 08:08 11/25/16 08:08 11/25/16 08:08 11/25/16 08:08 - Labs Labs: 11/25/16 05:45 11/25/16 05:45 PT 9.9 SECONDS (9.6-11.2) 11/22/16 18:55 INR 0.95 (0.92-1.08) 11/22/16 18:55 APTT 27.5 SECONDS (23.3-32.5) 11/22/16 18:55 Attending/Attestation - Attestation I have personally seen and examined this patient.: Yes I have fully participated in the care of the patient.: Yes I have reviewed all pertinent clinical information, including history, physical exam and plan: Yes Notes (Text): 11/25/16 22:06 Pt was seen and examined at bedside on 11/24/16 Agree with above note and assessment.
[2016-11-24] MEDS: Lidocaine 5% Patch TD SCH (08:44)
[2016-11-24] MEDS: Potassium CL 10mEq/100ml 100 ML IVPB SCH ×2 (10:26→11:45)
[2016-11-24] MEDS: Ciprofloxacin 400mg/200ml D5W 400 MG/200 ML BAG IVPB SCH ×2 (10:27→21:13)
[2016-11-24] MEDS ORDERED: Potassium Chloride 40 mEq/30 ml LIQ UD PO ONE (10:58)
[2016-11-24] MEDS ORDERED: Potassium Chloride 20 mEq/15 ml LIQ UD PO ONE (11:15)
--- NOTE | 2016-11-24 15:49 | CP.PCM.PN ---
Subjective - Date & Time of Evaluation Date of Evaluation: 11/24/16 Time of Evaluation: 07:00 - Subjective Subjective: Patient was seen and examined at bedside this morning. Patient is still complaining of lower abdominal pain mostly localized in left side, however has decreased in intensity. Denies nausea, vomiting, chills, diarrheas, urinary symptoms at this evaluation.Reports two normal consistency bowel movements yesterday. Objective - Vital Signs/Intake and Output Vital Signs (last 24 hours): Temp Pulse Resp BP Pulse Ox 98.8 F 61 18 121/75 98 11/24/16 08:16 11/24/16 08:16 11/24/16 08:16 11/24/16 08:16 11/24/16 08:16 - Medications Medications: Current Medications Acetaminophen (Tylenol 325mg Tab) 650 mg PO Q6 PRN PRN Reason: Pain, moderate (4-7) Metronidazole (Flagyl 500mg/100ml Ns) 100 mls @ 100 mls/hr IVPB Q8 [facility] Last Admin: 11/24/16 08:44 Dose: 100 mls/hr Ciprofloxacin (Cipro 400mg/200ml Dsw) 400 mg in 200 mls @ 200 mls/hr IVPB Q12 [facility] Last Admin: 11/24/16 10:27 Dose: 200 mls/hr Ketorolac Tromethamine (Toradol) 30 mg IVP Q6 PRN PRN Reason: Pain, severe (8-10) Last Admin: 11/24/16 01:50 Dose: 30 mg Ketorolac Tromethamine (Toradol) 15 mg IVP Q6 PRN PRN Reason: Pain, moderate (4-7) Last Admin: 11/23/16 16:39 Dose: 15 mg Lidocaine (Lidoderm) 1 ea TD DAILY [facility] Last Admin: 11/24/16 08:44 Dose: 1 ea - Labs Labs: 11/24/16 05:25 11/24/16 05:25 PT 9.9 SECONDS (9.6-11.2) 11/22/16 18:55 INR 0.95 (0.92-1.08) 11/22/16 18:55 APTT 27.5 SECONDS (23.3-32.5) 11/22/16 18:55 - Constitutional Appears: Non-toxic, No Acute Distress - Head Exam Head Exam: NORMAL INSPECTION - ENT Exam ENT Exam: Mucous Membranes Moist - Respiratory Exam Respiratory Exam: Clear to Ausculation Bilateral, NORMAL BREATHING PATTERN - Cardiovascular Exam Cardiovascular Exam: RRR, +S1, +S2 - GI/Abdominal Exam GI & Abdominal Exam: Soft, Tenderness (mild tender to palpation of LLQ, RLQ and hypogastrium, but no rebound tenderness noted), Normal Bowel Sounds. absent: Distended, Rigid - Extremities Exam Extremities Exam: Normal Inspection. absent: Calf Tenderness, Pedal Edema - Back Exam Back Exam: absent: CVA tenderness (L), CVA tenderness (R) - Neurological Exam Neurological Exam: Alert, Awake, Oriented x3 - Psychiatric Exam Psychiatric exam: Normal Affect, Normal Mood - Skin Skin Exam: Dry, Intact, Normal Color Assessment and Plan - Assessment and Plan (Free Text) Assessment: This is a 36 y/o Male with PMHx of diverticulosis, and recurrent episodes of acute diverticulitis who was admitted for IV antibiotics to manage third episode of diverticulitis, improving but still complaining of pain. Plan: Acute diverticulitis -Afebrile, no Tachycardic -resolved previous leukocytosis seen in CBC on admission. WBC:8.8 on 11/24/16 -Advance to liquid diet for breakfast, and monitor tolerance and continue advancing diet as tolerated -c/w Cipro 400 mg IV Q12 hrs Day #1 -c/w Flagyl 500 IV Q8 hours Day #1 -C/w with pain management w/Toradol PRN -discontinue IV Hydration Dextrose 5%/NS 0.9 % if PO tolerance -F/U blood culture Abdominal Ct scan showed : acute diverticulitis of sigmoid colon -General surgery consult appreciated recommended continue with IV antibiotics and GI consult for colonoscopy as outpatient Hypokalemia most like secondary to N/V -Asymptomatic - BMP on 11/24/16 : K+ 3.2 -Potassium 40 MEQ PO once -F/U repeat K+ on 11/25/16 -Magnesium WNL DVT prophylaxis [id number] mg SC daily
--- NOTE | 2016-11-24 17:04 | CP.PCM.PCO ---
Assessment/Plan - Assessment and Plan (Free Text) Assessment: I saw and evaluated the patient. I discussed the case with the resident and agree with the findings and plan as documented in the resident's note. in the room. Pt says he continues to have pain. I observed pt grimacing as he turned over in bed. pt continues to have LLQ pain upon palpation. Pt even had pain when I pushed with my stereoscope. Cont iv abx and liquid diet.
[2016-11-24] MEDS: Enoxaparin 40 mg Syringe SC SCH ×2 (21:13→21:17)
[2016-11-25 01:32] VITALS: TEMP 98.1
[2016-11-25] MEDS: metroNIDAZOLE 500mg/100ml NS 100 ML IVPB SCH ×2 (01:32→08:52)
[2016-11-25 07:02] LABS: HEMATOCRIT 41.3 % (35.0-51.0); MEAN CELL VOLUME 84.4 fl (80.0-94.0); MEAN CORPUSCULAR HEMOGLOBIN 27.9 pg (27.0-31.0); RED CELL DISTRIBUTION WIDTH 13.3 % (11.5-14.5); WHITE BLOOD COUNT 8.3 K/uL (4.8-10.8)
--- NOTE | 2016-11-25 07:59 | CP.PCM.PN ---
<Karthikeyan Marcus - Last Filed: 11/25/16 07:57> Subjective - Date & Time of Evaluation Date of Evaluation: 11/25/16 Time of Evaluation: 07:57 - Subjective Subjective: Gen Surg: Dr White Pt S&E. Yesterday evening pt had a recurrence of pain after being advanced to regular diet. This morning that pain has resolved. He denies N/V, F/C. He has been passing flatus and having BMs. He is OOB and ambulating. Explained to pt the important of remaining on liquid diet and/or soft diet for at least 2 weeks with dx of diverticulitis Objective - Vital Signs/Intake and Output Vital Signs (last 24 hours): Temp Pulse Resp BP Pulse Ox 98.1 F 84 19 119/82 96 11/25/16 00:31 11/25/16 00:31 11/25/16 00:31 11/25/16 00:31 11/25/16 00:31 - Medications Medications: Current Medications Acetaminophen (Tylenol 325mg Tab) 650 mg PO Q6 PRN PRN Reason: Pain, moderate (4-7) Enoxaparin Sodium (Lovenox) 40 mg SC DAILY [facility] PRN Reason: Protocol Last Admin: 11/24/16 21:17 Dose: Not Given Metronidazole (Flagyl 500mg/100ml Ns) 100 mls @ 100 mls/hr IVPB Q8 [facility] Last Admin: 11/25/16 01:32 Dose: 100 mls/hr Ciprofloxacin (Cipro 400mg/200ml Dsw) 400 mg in 200 mls @ 200 mls/hr IVPB Q12 [facility] Last Admin: 11/24/16 21:13 Dose: 200 mls/hr Ketorolac Tromethamine (Toradol) 30 mg IVP Q6 PRN PRN Reason: Pain, severe (8-10) Last Admin: 11/24/16 22:40 Dose: 30 mg Ketorolac Tromethamine (Toradol) 15 mg IVP Q6 PRN PRN Reason: Pain, moderate (4-7) Last Admin: 11/23/16 16:39 Dose: 15 mg Lidocaine (Lidoderm) 1 ea TD DAILY [facility] Last Admin: 11/24/16 08:44 Dose: 1 ea - Labs Labs: 11/25/16 05:45 11/25/16 05:45 PT 9.9 SECONDS (9.6-11.2) 11/22/16 18:55 INR 0.95 (0.92-1.08) 11/22/16 18:55 APTT 27.5 SECONDS (23.3-32.5) 11/22/16 18:55 - Constitutional Appears: Non-toxic, No Acute Distress - Eye Exam Eye Exam: Normal appearance - Respiratory Exam Respiratory Exam: absent: Accessory Muscle Use, Decreased Breath Sounds - Cardiovascular Exam Cardiovascular Exam: REGULAR RHYTHM - GI/Abdominal Exam GI & Abdominal Exam: Soft, Tenderness (LLQ but improved). absent: Distended, Firm, Guarding, Rigid, Hernia, Mass - Extremities Exam Extremities Exam: absent: Pedal Edema - Neurological Exam Neurological Exam: Alert, Awake, Oriented x3 - Psychiatric Exam Psychiatric exam: Normal Affect, Normal Mood - Skin Skin Exam: Normal Color, Warm Assessment and Plan - Assessment and Plan (Free Text) Assessment: 36M with diverticulitis; resolving Plan: Remain on liquid or soft diet for at least two weeks Pt clear for D/C from surgical standpoint D/C with PO antibiotics return to ED if symptoms worsen will d/w attending Karthikeyan Marcus DO, PGY2 <Guillermo White B - Last Filed: 11/25/16 22:18> Objective - Vital Signs/Intake and Output Vital Signs (last 24 hours): Temp Pulse Resp BP Pulse Ox 98.1 F 71 20 134/90 99 11/25/16 08:08 11/25/16 08:08 11/25/16 08:08 11/25/16 08:08 11/25/16 08:08 - Labs Labs: 11/25/16 05:45 11/25/16 05:45 PT 9.9 SECONDS (9.6-11.2) 11/22/16 18:55 INR 0.95 (0.92-1.08) 11/22/16 18:55 APTT 27.5 SECONDS (23.3-32.5) 11/22/16 18:55 Attending/Attestation - Attestation I have personally seen and examined this patient.: Yes I have fully participated in the care of the patient.: Yes I have reviewed all pertinent clinical information, including history, physical exam and plan: Yes Notes (Text): 11/25/16 22:17 Pt was seen and examined at bedside on 11/25/16 Agree with above note and assessment. Pt with improving Diverticulitis DC home with PO antibiotics F.u as out pt
[2016-11-25 08:08] VITALS: BP 134/90; PULSE 71; RESP 20; O2SAT 99
[2016-11-25] MEDS: Lidocaine 5% Patch TD SCH (08:53)
[2016-11-25] MEDS: Enoxaparin 40 mg Syringe SC SCH (08:56)
[2016-11-25] MEDS: Ciprofloxacin 400mg/200ml D5W 400 MG/200 ML BAG IVPB SCH (08:56)
--- NOTE | 2016-11-25 18:08 | CP.PCM.DIS ---
Provider - Provider Date of Admission: 11/23/16 11:01 Attending physician: Alisa Nuñez MD Time Spent in preparation of Discharge (in minutes): 30 Diagnosis - Discharge Diagnosis (1) Acute diverticulitis Status: Acute Priority: High Comment: Improved. Asymtomatic. Continue with Ciprofloxacin and Metronidazol PO to complate 10 more days of treatment. Prescriptions given. Prescription for pain control at home given. F/U with PMD, Surgery and GI as outpatient. Appointments given. ER precautions given. Hospital Course - Lab Results Lab Results: Most Recent Lab Values WBC 8.3 K/uL (4.8-10.8) 11/25/16 05:45 RBC 4.89 Mil/uL (4.40-5.90) 11/25/16 05:45 Hgb 13.6 g/dL (12.0-18.0) 11/25/16 05:45 Hct 41.3 % (35.0-51.0) 11/25/16 05:45 MCV 84.4 fl (80.0-94.0) 11/25/16 05:45 MCH 27.9 pg (27.0-31.0) 11/25/16 05:45 MCHC 33.0 g/dL (33.0-37.0) 11/25/16 05:45 RDW 13.3 % (11.5-14.5) 11/25/16 05:45 Plt Count 301 K/uL (130-400) 11/25/16 05:45 MPV 9.4 fl (7.2-11.7) 11/22/16 18:55 Neut % (Auto) 67.4 % (50.0-75.0) 11/22/16 18:55 Lymph % (Auto) 18.6 % (20.0-40.0) L 11/22/16 18:55 Adams % (Auto) 11.3 % (0.0-10.0) H 11/22/16 18:55 Eos % (Auto) 2.2 % (0.0-4.0) 11/22/16 18:55 Baso % (Auto) 0.5 % (0.0-2.0) 11/22/16 18:55 Neut # 9.2 K/uL (1.8-7.0) H 11/22/16 18:55 Lymph # 2.5 K/uL (1.0-4.3) 11/22/16 18:55 Adams # 1.5 K/uL (0.0-0.8) H 11/22/16 18:55 Eos # 0.3 K/uL (0.0-0.7) 11/22/16 18:55 Baso # 0.1 K/uL (0.0-0.2) 11/22/16 18:55 PT 9.9 SECONDS (9.6-11.2) 11/22/16 18:55 INR 0.95 (0.92-1.08) 11/22/16 18:55 APTT 27.5 SECONDS (23.3-32.5) 11/22/16 18:55 Sodium 144 mmol/l (132-148) 11/24/16 05:25 Potassium 3.8 MMOL/L (3.6-5.0) 11/25/16 05:45 Chloride 106 mmol/L (98-107) 11/24/16 05:25 Carbon Dioxide 24 mmol/L (22-30) 11/24/16 05:25 Anion Gap 17 (10-20) 11/24/16 05:25 BUN 10 mg/dl (9-20) 11/24/16 05:25 Creatinine 0.8 mg/dL (0.8-1.5) 11/24/16 05:25 Est GFR ( Amer) > 60 11/24/16 05:25 Est GFR (Non-Af Amer) > 60 11/24/16 05:25 Random Glucose 115 mg/dL (75-110) H 11/24/16 05:25 Lactic Acid 1.1 MMOL/L (0.7-2.1) 11/22/16 18:55 Calcium 8.3 mg/dL (8.4-10.2) L 11/24/16 05:25 Magnesium 2.1 MG/DL (1.6-2.3) 11/24/16 08:45 Total Bilirubin 0.4 mg/dl (0.2-1.3) 11/24/16 05:25 AST 20 U/L (17-59) 11/24/16 05:25 ALT 29 U/L (21-72) 11/24/16 05:25 Alkaline Phosphatase 53 U/L (38-126) 11/24/16 05:25 Total Protein 6.4 G/DL (6.3-8.2) 11/24/16 05:25 Albumin 3.7 g/dL (3.5-5.0) 11/24/16 05:25 Globulin 2.7 gm/dL (2.2-3.9) 11/24/16 05:25 Albumin/Globulin Ratio 1.4 (1.0-2.1) 11/24/16 05:25 Lipase 34 U/L (23-300) 11/22/16 18:55 HIV-1 Ab Rapid Screen Non reactive (NON REAC) 11/24/16 05:25 - Hospital Course Hospital Course: This is a 36 y/o male with PMHx of Diverticulosis and 2 previous episodes of diverticulitis who presented to [facility] complaining of abdominal pain. Abdominal CT showed finding of acute diverticulitis of sigmoid colon and patient was admitted to manage recurrent diverticulitis with IV antibiotics. During admission patient was NPO, and diet was advance as tolerated, IV hydration while NPO, IV antibiotic, Ciprofloxacin and Metronidazole, and pain management with Toradol as needed. During admission leukocytosis found in CBC resolved in repeated CBC, electrolytes imbalance was replaced and resolved. Surgical team was consulted for evaluation due to recurrent diverticulitis. No acute surgical intervention was recommended at this time, GI consult was recommended as outpatient for possible colonoscopy. Patient was seen and examined at bedside this morning. Patient denied abdominal pain, nausea, vomiting, diarrheas, blood in stool, or other complain. Patient is tolerating PO and bland diet well. Stable to be discharge home today on PO antibiotics and will follow as outpatient with PMD, Surgery and GI. Home medications: Cirprofloxacin 500 mg 1 tab BID PO for 10 days Metronidazole 500 mg 1 tab TID PO for 10 days ( avoid alcohol intake) Tramadol 50mg Q8 PRN Appointments: 12/03/16 Surgery, Dr. Oscar 12/04/16 at [facility] 03/12/17 GI, Dr. Cabrera - Date & Time of H&P Date of H&P: 11/22/16 Time of H&P: 18:55 Discharge Exam - Head Exam Head Exam: NORMAL INSPECTION - ENT Exam ENT Exam: Mucous Membranes Moist - Respiratory Exam Respiratory Exam: Clear to PA & Lateral, NORMAL BREATHING PATTERN, UNREMARKABLE - Cardiovascular Exam Cardiovascular Exam: REGULAR RHYTHM, +S1, +S2 - GI/Abdominal Exam GI & Abdominal Exam: Normal Bowel Sounds, Soft, Tenderness (Very milf tender to palpation of LLQ, howevere improved from previous exam). absent: Distended, Rebound, Rigid - Extremities Exam Extremities exam: normal inspection Additional comments: No calf tenderness noted. Priyank's sign negative bilateral. No edema in lower extremities. - Neurological Exam Neurological exam: Alert, Oriented x3 - Psychiatric Exam Psychiatric exam: Normal Affect, Normal Mood - Skin Skin Exam: Dry, Intact, Normal Color Discharge Plan - Discharge Medications Prescriptions: Ciprofloxacin HCl [Cipro] 500 mg PO BID #20 tablet Metronidazole 500 mg PO Q8H #30 tablet traMADol [Ultram] 50 mg PO Q8H PRN #20 tab PRN Reason: Pain, Moderate (4-7) - Follow Up Plan Condition: FAIR Disposition: HOME/ ROUTINE Instructions: Ciprofloxacin (By mouth), Metronidazole (By mouth), Tramadol (By mouth), Diverticulitis (DC), Low Fiber Diet (GEN), Diverticulitis Diet (DC) Additional Instructions: Follow up in [facility] in 1 week. return to ER for fever, uncontrolled pain , n/v or diarrhea Follow up with on 12/03 at 10 AM. Follow up with Dr. Cabrera on March 12 at 8:30 AM
== END 2016-11-25 15:56 | disposition home or self-care (01) | DRG 392 ==
LOC: H.ER 18:11 → UNDOADMOB 18:41 → INTOOBSV 18:41 → OBSVTOIN 18:41 → H.EROBSV 18:41 → H.MEDSURG1 22:56 → OBSVTOIN 11-23 11:01 → H.MEDSURG1 11-23 11:01 → H.EROBSV 11-23 11:01
PROVIDERS: ADMIT Family Medicine Geriatric Medicine; ATTEND Family Medicine Geriatric Medicine
DX: K57.32 Diverticulitis of large intestine without perforation or abscess without bleeding (principal); E87.6 Hypokalemia; R73.03 Prediabetes; Z91.013 Allergy to seafood

== ENCOUNTER 2018-01-08 16:08 | Emergency (ER) | payer OTHER, SELFPAY ==
[2018-01-08 16:09] VITALS: BMI 21.5
[2018-01-08 16:13] VITALS: BP 131/81; PULSE 88; RESP 18; O2SAT 100
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
[2018-01-08 17:55] VITALS: TEMP 98.2
== END 2018-01-08 17:50 | disposition home or self-care (01) ==
LOC: H.ER 16:08
DX: S13.4XXA Sprain of ligaments of cervical spine, initial encounter (principal); S09.90XA Unspecified injury of head, initial encounter; V43.52XA Car driver injured in collision with other type car in traffic accident, initial encounter

== ENCOUNTER 2018-02-24 08:36 | Inpatient (IN) | payer SELFPAY ==
[2018-02-24 08:50] VITALS: BMI 30.2
[2018-02-24] MEDS ORDERED: Sodium Chloride 0.9% 1,000 ML IV STA (09:48)
[2018-02-24] MEDS ORDERED: Iohexol 240 (50 ml) PO ONE (09:49)
--- NOTE | 2018-02-24 09:52 | ED PDOC ---
HPI: Abdomen Time Seen by Provider: 02/24/18 09:00 Chief Complaint (Nursing): Abdominal Pain Chief Complaint (Provider): abdominal pain History Per: Patient History/Exam Limitations: language barrier (Xavi manager trade Geraldine #[id number]) Onset/Duration Of Symptoms: Days (x1) Current Symptoms Are (Timing): Still Present Location Of Pain/Discomfort: LLQ Associated Symptoms: Nausea. denies: Fever, Chills, Vomiting, Diarrhea Additional Complaint(s): Fletcher Cervantes is a 38 year old male, with a past medical history of diverticulitis and diabetes, who presents to the emergency department complaining of left lower abdominal pain associated with nausea onset since yesterday. Patient reports he was diagnosed with diverticulitis this year and believes he might have it again. He also reports a headache but denies any fever , chills, diarrhea or vomiting. No further medical complaints. PMD: Clinic. Past Medical History Reviewed: Historical Data, Nursing Documentation, Vital Signs Vital Signs: Last Vital Signs Temp 97.5 F L 02/24/18 08:51 Pulse 81 02/24/18 08:51 Resp 20 02/24/18 08:51 BP 131/79 02/24/18 08:51 Pulse Ox 99 02/24/18 14:50 - Medical History PMH: Diabetes (borderline, not on meds), Diverticulitis, Migraine Denies: HIV, Hypercholesterolemia, Chronic Kidney Disease - Surgical History Surgical History: No Surg Hx - Family History Family History: States: Unknown Family Hx, Diabetes - Social History Current smoker - smoking cessation education provided: No Alcohol: None Drugs: Denies - Immunization History Hx Tetanus Toxoid Vaccination: No Hx Influenza Vaccination: No Hx Pneumococcal Vaccination: No - Home Medications Home Medications: Ambulatory Orders Medication Instructions Recorded No Known Home Med 02/24/18 - Allergies Allergies/Adverse Reactions: Allergies Allergy/AdvReac Type Severity Reaction Status Date / Time FISH Allergy RASH Verified 02/24/18 09:00 Fish Containing Products Allergy RASH Verified 02/24/18 09:00 Review of Systems ROS Statement: Except As Marked, All Systems Reviewed And Found Negative Constitutional: Negative for: Fever, Chills Gastrointestinal: Positive for: Nausea, Abdominal Pain (LLQ). Negative for: Vomiting, Diarrhea Neurological: Positive for: Headache Physical Exam - Reviewed Nursing Documentation Reviewed: Yes Vital Signs Reviewed: Yes - Physical Exam Appears: Positive for: No Acute Distress Head Exam: Positive for: ATRAUMATIC, NORMAL INSPECTION, NORMOCEPHALIC Skin: Positive for: Normal Color, Warm, Dry Eye Exam: Positive for: Normal appearance, EOMI, PERRL Neck: Positive for: Painless ROM Cardiovascular/Chest: Positive for: Regular Rate, Rhythm. Negative for: Murmur Respiratory: Positive for: Normal Breath Sounds. Negative for: Respiratory Distress Gastrointestinal/Abdominal: Positive for: Soft, Tenderness (LLQ) Back: Positive for: Normal Inspection Extremity: Positive for: Normal ROM (upper and lower extremities). Negative for : Deformity, Swelling Neurologic/Psych: Positive for: Alert, Oriented - Laboratory Results Result Diagrams: 02/24/18 10:10 02/24/18 10:10 - ECG O2 Sat by Pulse Oximetry: 99 (RA) Pulse Ox Interpretation: Normal Medical Decision Making Medical Decision Making: Time: 09:18 Initial Impression: abdominal pain r/o appendicitis and diverticulitis Initial Plan: --Abd Pelvis PO & IV contrast [CT] --CMP --CBC w/ differential --Omnipaque 240 50 ml PO --Toradol 30 mg IV --Sodium Chloride 1,000 ml IV 999 mls/hr --Zofran Inj 4 mg IV --Blood culture --Urine culture --Urinalysis --Reevaluation Time: 12:31 CT Abd/Pelvis FINDINGS: LOWER THORAX: Unremarkable. LIVER: Diminished attenuation is indicative of hepatic steatosis diffusely. No gross lesion or ductal dilatation. GALLBLADDER AND BILE DUCTS: Unremarkable. PANCREAS: Unremarkable. No gross lesion or ductal dilatation. SPLEEN: Unremarkable. ADRENALS: Unremarkable. No mass. KIDNEYS AND URETERS: Unremarkable. No hydronephrosis. No solid mass. VASCULATURE: Unremarkable. No aortic aneurysm. BOWEL: The stomach is collapsed not well evaluated. Small bowel is does not appear obstructed in the large bowel is normal in caliber overall as well. A nearly identical pattern of diverticulitis affects the proximal to mid sigmoid colon although the local pericolic reaction is not quite is evident as previously demonstrated. Nevertheless the diagnosis is the same. Differential diagnosis of other infectious or inflammatory causes remains as well as underlying potential neoplasm. Follow-up colonoscopy is recommended following therapy. APPENDIX: Normal appendix. PERITONEUM: Unremarkable. No free fluid. No free air. LYMPH NODES: Unremarkable. No enlarged lymph nodes. BLADDER: Unremarkable. REPRODUCTIVE: Unremarkable. BONES: No acute fracture. OTHER FINDINGS: None. IMPRESSION: Recurrent diverticulitis proximal to mid sigmoid colon not abscess, free intrarenal gas or ascites. Hepatic steatosis [id number] severity. 14:35 -Given the fact is recurrent diverticulitis, patient will be referred to family practice. They were made aware. ----- Scribe Attestation: Documented by Kg Lord, acting as a scribe for Vitor Gallo MD. Provider Scribe Attestation: All medical record entries made by the Scribe were at my direction and personally dictated by me. I have reviewed the chart and agree that the record accurately reflects my personal performance of the history, physical exam, medical decision making, and the department course for this patient. I have also personally directed, reviewed, and agree with the discharge instructions and disposition. Disposition - Clinical Impression Clinical Impression: Abdominal pain, Colitis - Disposition Disposition Time: 14:35 Condition: IMPROVED
[2018-02-24 10:24] LABS: BASO % 0.4 % (0.0-2.0); EOS # 0.1 K/uL (0.0-0.7); EOS % 1.3 % (0.0-4.0); HEMOGLOBIN 14.6 g/dL (12.0-18.0); LYMPH # 1.7 K/uL (1.0-4.3); LYMPH % 23.3 % (20.0-40.0); MEAN CORPUSCULAR HEMOGLOBIN 28.5 pg (27.0-31.0); MEAN CORPUSCULAR HGB CONC 34.8 g/dL (33.0-37.0); MEAN PLATELET VOLUME 9.3 fl (7.2-11.7); MONO # 0.6 K/uL (0.0-0.8); MONO % 7.9 % (0.0-10.0); NEUT # 4.9 K/uL (1.8-7.0); NEUT % 67.1 % (50.0-75.0); NRBC % 0.1 % (0.0-0.0); RBC 5.13 Mil/uL (4.40-5.90); RED CELL DISTRIBUTION WIDTH 13.5 % (11.5-14.5); WHITE BLOOD COUNT 7.3 K/uL (4.8-10.8)
[2018-02-24 10:34] LABS: ALB/GLOB RATIO 1.3 (1.0-2.1); ALBUMIN 4.1 g/dL (3.5-5.0); ALT/SGPT 27 U/L (21-72); AST/SGOT 20 U/L (17-59); BLOOD UREA NITROGEN 17 mg/dl (9-20); CALCIUM 8.9 mg/dL (8.4-10.2); GFR AFRICAN-AMERICAN > 60; GFR NON-AFRICAN AMERICAN > 60
[2018-02-24] MEDS ORDERED: Iohexol 240 (50 ml) ONE (10:38)
[2018-02-24 10:49] LABS: URINE BILIRUBIN NEGATIVE (NEGATIVE); URINE BLOOD NEGATIVE (NEGATIVE); URINE CLARITY CLEAR (Clear); URINE COLOR YELLOW (YELLOW); URINE GLUCOSE (UA) >=500 mg/dL (Normal); URINE LEUKOCYTE ESTERASE NEG Leu/uL (Negative); URINE PROTEIN NEGATIVE (NEGATIVE); URINE UROBILINOGEN 0.2-1.0 mg/dL (0.2-1.0)
[2018-02-24] MEDS ORDERED: Iohexol 300 100 ML IJ ONE (11:45)
[2018-02-24] MEDS ORDERED: Sodium Chloride 0.9% 50 ML IV ONE (11:45)
--- NOTE | 2018-02-24 12:33 | CT ---
Date of service: 02/24/2018 PROCEDURE: CT Abdomen and Pelvis with contrast HISTORY: abd pain llq, history of diverticulitis COMPARISON: Abdomen pelvis CT with contrast 11/22/2016. TECHNIQUE: Following the intravenous administration of iodinated contrast material, a CT examination of the abdomen and pelvis performed from the domes of the diaphragms to the symphysis pubis with reformatted datasets provided in axial, sagittal and coronal planes. Oral contrast was not administered as per referring physician request. Contrast dose: Omnipaque 300, 95 cc. Radiation dose: Total exam DLP = 689.21 mGy-cm. This CT exam was performed using one or more of the following dose reduction techniques: Automated exposure control, adjustment of the mA and/or kV according to patient size, and/or use of iterative reconstruction technique. FINDINGS: LOWER THORAX: Unremarkable. LIVER: Diminished attenuation is indicative of hepatic steatosis diffusely. No gross lesion or ductal dilatation. GALLBLADDER AND BILE DUCTS: Unremarkable. PANCREAS: Unremarkable. No gross lesion or ductal dilatation. SPLEEN: Unremarkable. ADRENALS: Unremarkable. No mass. KIDNEYS AND URETERS: Unremarkable. No hydronephrosis. No solid mass. VASCULATURE: Unremarkable. No aortic aneurysm. BOWEL: The stomach is collapsed not well evaluated. Small bowel is does not appear obstructed in the large bowel is normal in caliber overall as well. A nearly identical pattern of diverticulitis affects the proximal to mid sigmoid colon although the local pericolic reaction is not quite is evident as previously demonstrated. Nevertheless the diagnosis is the same. Differential diagnosis of other infectious or inflammatory causes remains as well as underlying potential neoplasm. Follow-up colonoscopy is recommended following therapy. APPENDIX: Normal appendix. PERITONEUM: Unremarkable. No free fluid. No free air. LYMPH NODES: Unremarkable. No enlarged lymph nodes. BLADDER: Unremarkable. REPRODUCTIVE: Unremarkable. BONES: No acute fracture. OTHER FINDINGS: None. IMPRESSION: Recurrent diverticulitis proximal to mid sigmoid colon not abscess, free intrarenal gas or ascites. Hepatic steatosis [id number] severity.
[2018-02-24] MEDS ORDERED: Ciprofloxacin 400mg/200ml D5W 400 MG/200 ML BAG IVPB STA ×2 (14:21→14:27)
[2018-02-24] MEDS ORDERED: metroNIDAZOLE 500mg/100ml NS 100 ML IVPB ONE ×2 (14:30→15:50)
--- NOTE | 2018-02-24 15:30 | CP.PCM.HP ---
History of Present Illness - History of Present Illness History of Present Illness: Voyce: [id number] "I started having pain in my lower abdomen last night" 38 y/o male w/ pmhx of pre-diabetes, hypertriglyceridemia, and diverticulitis ( diagnosed October 2014) who c/o of left lower quadrant pain that began last night. He states that the pain is stabbing in nature, 8/10 in severity. He states that he had one similar episode this year and that antibiotics relieved his symptoms. He denies other alleviating or aggravating factors. He admits to nausea, chills, and non-bloody diarrhea. He denies polydipsia, polyphagia, polyurea, vomiting, fever. PMHx: childhood asthma, pre-diabetes, hypertriglyceridemia, diverticulitis Surgical hx: none Social hx: , lives w/ and kids. Works as a cook. Denies etoh, cigarette, recreational drug use Family hx: Father had DM2 and in his 80s Home Meds: None Allergies: None Next of Kin: , Siobhan Ni [phone] Code status: Full code ED Course: VS: T97.5 HR 81 BP 131/79 RR 20 02 sat 99 Labs: CBC & BMP wnl, U/A sig for > 500 glucose, blood and urine cultures Imaging: Abdominal/Pelvis CT showed diverticulitis proximal to mild sigmoid colon, and hepatic steatosis, no small bowel obstruction Meds: Cirpofloxacin 400 mg IV 200mL/hr, Metronidazole 500 mg 100mL/hr, Toradol 30mg IV, Zofran 4 mg, 1 L NS bolus Present on Admission - Present on Admission Any Indicators Present on Admission: No History of DVT/PE: No History of Uncontrolled Diabetes: No Urinary Catheter: No Decubitus Ulcer Present: No Review of Systems - Constitutional Constitutional: Weight Gain. absent: Excessive Sweating, Fatigue, Fever, Increased Appetite, Night Sweats - EENT Eyes: absent: Blurred Vision - Cardiovascular Cardiovascular: absent: Chest Pain, Diaphoresis, Dyspnea on Exertion, Leg Edema , Palpitations - Respiratory Respiratory: absent: Cough, Dyspnea, Wheezing - Gastrointestinal Gastrointestinal: Abdominal Pain, Cramping, Diarrhea, Nausea. absent: Bloating , Constipation, Dyspepsia, Dysphagia, Vomiting - Genitourinary Genitourinary: absent: Change in Urinary Stream, Difficulty Urinating, Dysuria, Urinary Frequency, Urinary Urgency - Musculoskeletal Musculoskeletal: absent: Back Pain, Muscle Cramps, Numbness - Integumentary Integumentary: absent: Change in Pigmentation, Unusual Bruising - Neurological Neurological: absent: Abnormal Speech, Confusion, Dizziness, Numbness Past Patient History - Infectious Disease Hx of Infectious Diseases: None - Tetanus Immunizations Tetanus Immunization: Unknown - Past Medical History & Family History Past Medical History?: Yes - Past Social History Smoking Status: Never Smoked Chewing Tobacco Use: No Cigar Use: No Alcohol: None Drugs: Denies Home Situation {Lives}: With Family - CARDIAC Hx Cardiac Disorders: No Hx Angina: No Hx Atrial Fibrillation: No Hx Cardia Arrhythmia: No Hx Circulatory Problems: No Hx Heart Attack: No Hx Hypercholesterolemia: No - PULMONARY Hx Respiratory Disorders: No - NEUROLOGICAL Hx Migraine: Yes - HEENT Hx HEENT Problems: No - RENAL Hx Chronic Kidney Disease: No - ENDOCRINE/METABOLIC Hx Endocrine Disorders: Yes Other/Comment: pre -diabetes - HEMATOLOGICAL/ONCOLOGICAL Hx Human Immunodeficiency Virus (HIV): No - INTEGUMENTARY Hx Dermatological Problems: No - MUSCULOSKELETAL/RHEUMATOLOGICAL Hx Falls: No - GASTROINTESTINAL Hx Diverticulitis: Yes - GENITOURINARY/GYNECOLOGICAL Hx Genitourinary Disorders: No - PSYCHIATRIC Hx Psychophysiologic Disorder: No Hx Substance Use: No - SURGICAL HISTORY Hx Surgeries: No - ANESTHESIA Hx Anesthesia: No Hx Anesthesia Reactions: No Meds Allergies/Adverse Reactions: Allergies Allergy/AdvReac Type Severity Reaction Status Date / Time FISH Allergy RASH Verified 02/24/18 09:00 Fish Containing Products Allergy RASH Verified 02/24/18 09:00 Physical Exam - Constitutional Appears: No Acute Distress - Head Exam Head Exam: NORMAL INSPECTION - Eye Exam Eye Exam: Normal appearance - ENT Exam ENT Exam: Mucous Membranes Moist - Respiratory Exam Respiratory Exam: Clear to Auscultation Bilateral, NORMAL BREATHING PATTERN. absent: Chest Wall Tenderness, Wheezes - Cardiovascular Exam Cardiovascular Exam: REGULAR RHYTHM, +S1, +S2 - GI/Abdominal Exam GI & Abdominal Exam: Distended, Normal Bowel Sounds, Soft, Tenderness. absent: Rebound, Rigid - Extremities Exam Extremities exam: Positive for: normal inspection. Negative for: pedal edema, tenderness - Back Exam Back exam: absent: CVA tenderness (L), CVA tenderness (R) - Neurological Exam Neurological exam: Alert, Oriented x3 - Psychiatric Exam Psychiatric exam: Normal Affect - Skin Skin Exam: Dry, Intact, Warm Results - Vital Signs Recent Vital Signs: Last Vital Signs Temp 97.5 F L 02/24/18 08:51 Pulse 81 02/24/18 08:51 Resp 20 02/24/18 08:51 BP 131/79 02/24/18 08:51 Pulse Ox 99 02/24/18 14:50 - Labs Result Diagrams: 02/24/18 10:10 02/24/18 10:10 Labs: Laboratory Results - last 24 hr 02/24/18 02/24/18 02/24/18 10:10 10:10 10:20 WBC 7.3 RBC 5.13 Hgb 14.6 Hct 42.0 MCV 82.0 D MCH 28.5 MCHC 34.8 RDW 13.5 Plt Count 304 MPV 9.3 Neut % (Auto) 67.1 Lymph % (Auto) 23.3 [place] % (Auto) 7.9 Eos % (Auto) 1.3 Baso % (Auto) 0.4 Neut # (Auto) 4.9 Lymph # (Auto) 1.7 [place] # (Auto) 0.6 Eos # (Auto) 0.1 Baso # (Auto) 0.0 Sodium 143 Potassium 3.6 Chloride 108 H Carbon Dioxide 25 Anion Gap 14 BUN 17 Creatinine 0.7 L Est GFR ( Amer) > 60 Est GFR (Non-Af Amer) > 60 Random Glucose 110 Calcium 8.9 Total Bilirubin 0.5 AST 20 ALT 27 Alkaline Phosphatase 66 Total Protein 7.2 Albumin 4.1 Globulin 3.1 Albumin/Globulin Ratio 1.3 Urine Color Yellow Urine Clarity Clear Urine pH 6.0 Ur Specific [place] 1.013 Urine Protein Negative Urine Glucose (UA) >=500 Urine Ketones Negative Urine Blood Negative Urine Nitrate Negative Urine Bilirubin Negative Urine Urobilinogen 0.2-1.0 Ur Leukocyte Esterase Neg Urine RBC (Auto) 3 Urine Microscopic WBC < 1 Assessment & Plan - Assessment and Plan (Free Text) Assessment: 38 y/o obese male w/ pmhx of pre-diabetes, hypertriglyceridemia, and diverticulitis (dx on CT October 2014) c/o of severe left lower quadrant pain that began last night. Acute on Chronic Diverticulitis -Symptomatic, uncomplicated -admit to med surg -severe abdominal pain, nausea, and malaise -afebrile, no leukocytosis -c/w IVF NS 125mL/hr -C/w cirpo 400 mg IV and metronidazole 500mg IV -Zofran 4 mg prn for nausea, Toradol 15mg IV Q6 PRN for moderate, 30 mg IV Q6 PRN for severe pain -GI and surgery consults ordered -blood and urine cultures pending -Abdominal/Pelvis CT showed diverticulitis proximal to mid sigmoid colon, and hepatic steatosis, no small bowel obstruction -last colonoscopy 08/18/16: non-bleeding internal hemorrhoids Pre-diabetes -last hgbA1c (12/31/2017) 6.1 -random glucose 110, U/A glucose >500 -will follow urine culture Hx of Hypertriglycerdemia -Triglyceride: 243 Diet: -NPO DVT prophylaxis: -Lovenox 40 SC Code: -Full code. - Date & Time Date: 02/24/18 Time: 16:21
[2018-02-24] MEDS ORDERED: Ciprofloxacin 400mg/200ml D5W 400 MG/200 ML BAG IVPB ONE (15:50)
[2018-02-24] MEDS ORDERED: metroNIDAZOLE 500mg/100ml NS 100 ML IVPB SCH ×2 (17:00→21:00)
[2018-02-24] MEDS: Sodium Chloride 0.9% 1,000 ML IV SCH (17:33)
--- NOTE | 2018-02-24 20:16 | CP.PCM.CON ---
History of Present Illness - History of Present Illness History of Present Illness: General Surgery Consult Re: recurrent diverticulitis HPI: 38M presented to the ED c/o of left lower quadrant pain that began last night. Pain was 8/10 in severity. He has had multiple recurrences, with the most recent earlier this year and abx relieved his symptoms. + nausea, chills, and non-bloody diarrhea. No complaints or other issues at this time, feeling better. Last Cscope 08/18/16. PMH: Asthma (as child), pre-diabetes, hypertriglyceridemia, diverticulitis ( first in 2014) PSH: Denies SH: Social EtOH, no tobacco, or drug use FH: non contributory All: NKDA Meds: Denies Review of Systems - Review of Systems All systems: reviewed and no additional remarkable complaints except (as per HPI ) Past Patient History - Infectious Disease Hx of Infectious Diseases: None - Tetanus Immunizations Tetanus Immunization: Unknown - Past Medical History & Family History Past Medical History?: Yes - Past Social History Smoking Status: Never Smoked Chewing Tobacco Use: No Cigar Use: No Alcohol: None Drugs: Denies Home Situation {Lives}: With Family - CARDIAC Hx Cardiac Disorders: No Hx Angina: No Hx Atrial Fibrillation: No Hx Cardia Arrhythmia: No Hx Circulatory Problems: No Hx Heart Attack: No Hx Hypercholesterolemia: No - PULMONARY Hx Respiratory Disorders: No - NEUROLOGICAL Hx Migraine: Yes - HEENT Hx HEENT Problems: No - RENAL Hx Chronic Kidney Disease: No - ENDOCRINE/METABOLIC Hx Endocrine Disorders: Yes Other/Comment: pre -diabetes - HEMATOLOGICAL/ONCOLOGICAL Hx Human Immunodeficiency Virus (HIV): No - INTEGUMENTARY Hx Dermatological Problems: No - MUSCULOSKELETAL/RHEUMATOLOGICAL Hx Falls: No - GASTROINTESTINAL Hx Diverticulitis: Yes - GENITOURINARY/GYNECOLOGICAL Hx Genitourinary Disorders: No - PSYCHIATRIC Hx Psychophysiologic Disorder: No Hx Substance Use: No - SURGICAL HISTORY Hx Surgeries: No - ANESTHESIA Hx Anesthesia: No Hx Anesthesia Reactions: No Meds Allergies/Adverse Reactions: Allergies Allergy/AdvReac Type Severity Reaction Status Date / Time FISH Allergy RASH Verified 02/24/18 09:00 Fish Containing Products Allergy RASH Verified 02/24/18 09:00 - Medications Medications: Current Medications Enoxaparin Sodium (Lovenox) 40 mg SC DAILY BRENDA PRN Reason: Protocol Ciprofloxacin (Cipro 400mg/200ml Dsw) 400 mg in 200 mls @ 200 mls/hr IVPB Q12 BRENDA PRN Reason: Protocol Metronidazole (Flagyl 500mg/100ml Ns) 100 mls @ 100 mls/hr IVPB Q8 BRENDA PRN Reason: Protocol Sodium Chloride (Sodium Chloride 0.9%) 1,000 mls @ 125 mls/hr IV .Q8H BRENDA Stop: 02/25/18 08:44 Last Admin: 02/24/18 17:33 Dose: 125 mls/hr Ketorolac Tromethamine (Toradol) 15 mg IVP Q6 PRN PRN Reason: Pain, moderate (4-7) Ketorolac Tromethamine (Toradol) 30 mg IVP Q6 PRN PRN Reason: Pain, severe (8-10) Physical Exam - Constitutional Appears: Non-toxic, No Acute Distress - Head Exam Head Exam: ATRAUMATIC, NORMOCEPHALIC - Eye Exam Eye Exam: EOMI. absent: Scleral icterus - ENT Exam ENT Exam: Mucous Membranes Moist Additional comments: trachea midline - Respiratory Exam Respiratory Exam: NORMAL BREATHING PATTERN. absent: Respiratory Distress - Cardiovascular Exam Cardiovascular Exam: RRR, +S1, +S2 - GI/Abdominal Exam GI & Abdominal Exam: Soft, Tenderness (mild in LLQ). absent: Distended, Firm, Guarding, Hernia, Rebound, Rigid - Rectal Exam Rectal Exam: Deferred - Extremities Exam Extremities exam: Positive for: normal capillary refill. Negative for: calf tenderness, pedal edema - Back Exam Back exam: absent: CVA tenderness (L), CVA tenderness (R) - Neurological Exam Neurological exam: Alert, Oriented x3 - Skin Skin Exam: Dry, Warm Results - Vital Signs Recent Vital Signs: Last Vital Signs Temp 97.9 F 02/24/18 16:35 Pulse 65 02/24/18 16:45 Resp 16 02/24/18 16:45 BP 130/78 02/24/18 16:35 Pulse Ox 98 02/24/18 16:45 - Labs Result Diagrams: 02/24/18 10:10 02/24/18 10:10 Labs: Laboratory Results - last 24 hr 02/24/18 02/24/18 02/24/18 10:10 10:10 10:20 WBC 7.3 RBC 5.13 Hgb 14.6 Hct 42.0 MCV 82.0 D MCH 28.5 MCHC 34.8 RDW 13.5 Plt Count 304 MPV 9.3 Neut % (Auto) 67.1 Lymph % (Auto) 23.3 [facility] % (Auto) 7.9 Eos % (Auto) 1.3 Baso % (Auto) 0.4 Neut # (Auto) 4.9 Lymph # (Auto) 1.7 [facility] # (Auto) 0.6 Eos # (Auto) 0.1 Baso # (Auto) 0.0 Sodium 143 Potassium 3.6 Chloride 108 H Carbon Dioxide 25 Anion Gap 14 BUN 17 Creatinine 0.7 L Est GFR ( Amer) > 60 Est GFR (Non-Af Amer) > 60 Random Glucose 110 Calcium 8.9 Total Bilirubin 0.5 AST 20 ALT 27 Alkaline Phosphatase 66 Total Protein 7.2 Albumin 4.1 Globulin 3.1 Albumin/Globulin Ratio 1.3 Urine Color Yellow Urine Clarity Clear Urine pH 6.0 Ur Specific [place] 1.013 Urine Protein Negative Urine Glucose (UA) >=500 Urine Ketones Negative Urine Blood Negative Urine Nitrate Negative Urine Bilirubin Negative Urine Urobilinogen 0.2-1.0 Ur Leukocyte Esterase Neg Urine RBC (Auto) 3 Urine Microscopic WBC < 1 - Imaging and Cardiology CT scan - abdomen Status: Image reviewed by me, Report reviewed by me Assessment & Plan - Assessment and Plan (Free Text) Assessment: 38M with recurrent diverticulitis Plan: IVF NPO cont IV abx Will need colonoscopy in 6-8 weeks prior to any surgical treatment. Discussed the possibility of a surgical option for treatment after follow up colonoscopy with pt. D/W Dr. Dayne Jones PGY4
[2018-02-24] MEDS: Ciprofloxacin 400mg/200ml D5W 400 MG/200 ML BAG IVPB SCH (21:35)
[2018-02-24 23:33] VITALS: O2SAT 100
[2018-02-25] MEDS: Sodium Chloride 0.9% 1,000 ML IV SCH (04:00)
[2018-02-25] MEDS: metroNIDAZOLE 500mg/100ml NS 100 ML IVPB SCH ×2 (04:01→13:25)
--- NOTE | 2018-02-25 07:21 | CP.PCM.CON ---
<RachellerinnSantos - Last Filed: 02/25/18 11:43> History of Present Illness - History of Present Illness History of Present Illness: GI Fellow PGY4, Consult note. Consulted for recurrent diverticulitis. Fletcher Cervantes is a 38M M with history of diverticulitis presenting with LLQ abdominal pain. Pain started just [employer], sharp, 8/10 located in the LLQ of abdomen. These symptoms are identical to previous episodes of diverticulitis. He states he has been following a strict diet, avoiding steak, nuts and seed, and eating leafy, green salads. He denies fever, vomiting an diarrhea at this time. This is his 4th episodes of diverticulitis in the last 2- 3 years. He had a colonoscopy in 08/04 which did not show an underlying mass or inflammatory process. CT on this admission shows return of the same inflamed colon without abscess. The CT demonstrated hepatosteatosis. PMHx - See above. Dyslipidemia, obesity PSHx - CSPY 08/04 FMHx - Denies colon, or stomach related cancers. Denies liver disease. SocHx - Denies tobacco or alcohol use. 12pt ROS completed and negative except for above. Past Patient History - Infectious Disease Hx of Infectious Diseases: None - Tetanus Immunizations Tetanus Immunization: Unknown - Past Medical History & Family History Past Medical History?: Yes - Past Social History Smoking Status: Never Smoked Chewing Tobacco Use: No Cigar Use: No Alcohol: None Drugs: Denies Home Situation {Lives}: With Family - CARDIAC Hx Cardiac Disorders: No Hx Angina: No Hx Atrial Fibrillation: No Hx Cardia Arrhythmia: No Hx Circulatory Problems: No Hx Heart Attack: No Hx Hypercholesterolemia: No - PULMONARY Hx Respiratory Disorders: No - NEUROLOGICAL Hx Migraine: Yes - HEENT Hx HEENT Problems: No - RENAL Hx Chronic Kidney Disease: No - ENDOCRINE/METABOLIC Hx Endocrine Disorders: Yes Other/Comment: pre -diabetes - HEMATOLOGICAL/ONCOLOGICAL Hx Human Immunodeficiency Virus (HIV): No - INTEGUMENTARY Hx Dermatological Problems: No - MUSCULOSKELETAL/RHEUMATOLOGICAL Hx Falls: No - GASTROINTESTINAL Hx Diverticulitis: Yes - GENITOURINARY/GYNECOLOGICAL Hx Genitourinary Disorders: No - PSYCHIATRIC Hx Psychophysiologic Disorder: No Hx Substance Use: No - SURGICAL HISTORY Hx Surgeries: No - ANESTHESIA Hx Anesthesia: No Hx Anesthesia Reactions: No Meds Allergies/Adverse Reactions: Allergies Allergy/AdvReac Type Severity Reaction Status Date / Time FISH Allergy RASH Verified 02/24/18 09:00 Fish Containing Products Allergy RASH Verified 02/24/18 09:00 - Medications Medications: Current Medications Enoxaparin Sodium (Lovenox) 40 mg SC DAILY BRENDA PRN Reason: Protocol Ciprofloxacin (Cipro 400mg/200ml Dsw) 400 mg in 200 mls @ 200 mls/hr IVPB Q12 BRENDA PRN Reason: Protocol Last Admin: 02/24/18 21:35 Dose: 200 mls/hr Sodium Chloride (Sodium Chloride 0.9%) 1,000 mls @ 125 mls/hr IV .Q8H BRENDA Stop: 02/25/18 08:44 Last Admin: 02/25/18 04:00 Dose: 125 mls/hr Metronidazole (Flagyl 500mg/100ml Ns) 100 mls @ 100 mls/hr IVPB Q8@0500,1300, 2100 BRENDA PRN Reason: Protocol Last Admin: 02/25/18 04:01 Dose: 100 mls/hr Ketorolac Tromethamine (Toradol) 15 mg IVP Q6 PRN PRN Reason: Pain, moderate (4-7) Ketorolac Tromethamine (Toradol) 30 mg IVP Q6 PRN PRN Reason: Pain, severe (8-10) Physical Exam - Constitutional Appears: Well, In Acute Distress - Head Exam Head Exam: NORMAL INSPECTION - Eye Exam Eye Exam: EOMI, Normal appearance - ENT Exam ENT Exam: Mucous Membranes Moist, Normal Exam - Respiratory Exam Respiratory Exam: Clear to Auscultation Bilateral, NORMAL BREATHING PATTERN. absent: Stridor - Cardiovascular Exam Cardiovascular Exam: REGULAR RHYTHM, +S1, +S2 - GI/Abdominal Exam GI & Abdominal Exam: Normal Bowel Sounds, Soft, Tenderness. absent: Organomegaly Additional comments: LLQ pain with light palpation - Rectal Exam Rectal Exam: Deferred - Extremities Exam Extremities exam: Positive for: normal inspection - Neurological Exam Neurological exam: Alert, CN II-XII Intact, Oriented x3 - Psychiatric Exam Psychiatric exam: Normal Affect, Normal Mood - Skin Skin Exam: Dry, Intact, Normal Color Results - Vital Signs Recent Vital Signs: Last Vital Signs Temp 97.5 F L 02/25/18 05:00 Pulse 58 L 02/25/18 05:00 Resp 20 02/25/18 05:00 BP 115/68 02/25/18 05:00 Pulse Ox 100 02/25/18 05:00 - Labs Result Diagrams: 02/25/18 08:52 02/25/18 08:52 Labs: Laboratory Results - last 24 hr 02/24/18 02/24/18 02/24/18 10:10 10:10 10:20 WBC 7.3 RBC 5.13 Hgb 14.6 Hct 42.0 MCV 82.0 D MCH 28.5 MCHC 34.8 RDW 13.5 Plt Count 304 MPV 9.3 Neut % (Auto) 67.1 Lymph % (Auto) 23.3 [place] % (Auto) 7.9 Eos % (Auto) 1.3 Baso % (Auto) 0.4 Neut # (Auto) 4.9 Lymph # (Auto) 1.7 [place] # (Auto) 0.6 Eos # (Auto) 0.1 Baso # (Auto) 0.0 Sodium 143 Potassium 3.6 Chloride 108 H Carbon Dioxide 25 Anion Gap 14 BUN 17 Creatinine 0.7 L Est GFR ( Amer) > 60 Est GFR (Non-Af Amer) > 60 Random Glucose 110 Calcium 8.9 Total Bilirubin 0.5 AST 20 ALT 27 Alkaline Phosphatase 66 Total Protein 7.2 Albumin 4.1 Globulin 3.1 Albumin/Globulin Ratio 1.3 Urine Color Yellow Urine Clarity Clear Urine pH 6.0 Ur Specific [place] 1.013 Urine Protein Negative Urine Glucose (UA) >=500 Urine Ketones Negative Urine Blood Negative Urine Nitrate Negative Urine Bilirubin Negative Urine Urobilinogen 0.2-1.0 Ur Leukocyte Esterase Neg Urine RBC (Auto) 3 Urine Microscopic WBC < 1 Assessment & Plan - Assessment and Plan (Free Text) Assessment: 38M with recurrent diverticulitis #Acute Diverticulitis, recurrent #Hepatosplenomegaly #Mixed dyslipidemia #Obesity Plan: -CT abd/pelv reviewed and noted for inflammation of sigmoid and hepatosteatosis -Continue Abx for GNR and anaerobes -Agree with surgical evaluation -Diet: Can advance to full liquid. -Follow up with Dr. Cabrera in 6-8 weeks for colonoscopy evaluation -Discussed liver findings with patient. Likely from NAFLD. Hep panel neg in 2014. Will order iron studies. -Educated patient on lifestyle changes i.e. exercise, blood sugar control, weight loss. -No planned procedures at this time. - Date & Time Date: 02/25/18 Time: 07:22 <Shaun Rose Y - Last Filed: 02/25/18 12:59> Meds - Medications Medications: Current Medications Enoxaparin Sodium (Lovenox) 40 mg SC DAILY BRENDA PRN Reason: Protocol Last Admin: 02/25/18 09:09 Dose: Not Given Ciprofloxacin (Cipro 400mg/200ml Dsw) 400 mg in 200 mls @ 200 mls/hr IVPB Q12 BRENDA PRN Reason: Protocol Last Admin: 02/25/18 09:06 Dose: 200 mls/hr Metronidazole (Flagyl 500mg/100ml Ns) 100 mls @ 100 mls/hr IVPB Q8@0500,1300, 2100 BRENDA PRN Reason: Protocol Last Admin: 02/25/18 04:01 Dose: 100 mls/hr Ketorolac Tromethamine (Toradol) 15 mg IVP Q6 PRN PRN Reason: Pain, moderate (4-7) Ketorolac Tromethamine (Toradol) 30 mg IVP Q6 PRN PRN Reason: Pain, severe (8-10) Results - Vital Signs Recent Vital Signs: Last Vital Signs Temp 97.6 F 02/25/18 09:00 Pulse 63 02/25/18 09:00 Resp 16 02/25/18 09:00 BP 132/82 02/25/18 09:00 Pulse Ox 100 02/25/18 09:00 - Labs Result Diagrams: 02/25/18 08:52 02/25/18 08:52 Labs: Laboratory Results - last 24 hr 02/25/18 02/25/18 02/25/18 08:52 08:52 08:52 WBC 7.3 RBC 4.90 Hgb 14.0 Hct 40.2 MCV 82.0 MCH 28.6 MCHC 34.9 RDW 13.6 Plt Count 292 MPV 9.0 Neut % (Auto) 58.9 Lymph % (Auto) 29.0 [place] % (Auto) 8.7 Eos % (Auto) 2.5 Baso % (Auto) 0.9 Neut # (Auto) 4.3 Lymph # (Auto) 2.1 [place] # (Auto) 0.6 Eos # (Auto) 0.2 Baso # (Auto) 0.1 Sodium 141 Potassium 3.4 L Chloride 107 Carbon Dioxide 25 Anion Gap 12 BUN 12 Creatinine 0.8 Est GFR ( Amer) > 60 Est GFR (Non-Af Amer) > 60 Random Glucose 98 Calcium 8.2 L Phosphorus 3.4 Magnesium 1.8 Iron 57 TIBC 294 % Saturation 19 L Attending/Attestation - Attestation I have personally seen and examined this patient.: Yes I have fully participated in the care of the patient.: Yes I have reviewed all pertinent clinical information: Yes Notes (Text): 02/25/18 12:54 I have seen and examined patient with GI fellow. Agree with above documentation with the following additions. In brief, this is a 38 year old male with history of recurrent diverticulitis who presents to hospital with complaint of sudden onset abdominal pain which started yesterday. He describes a sharp, 8/10 intensity LLQ abdominal pain which feels similar to prior episodes. He denies associated nausea, vomiting, fever/chills, weight loss, rectal bleeding, or diarrhea. Since arrival to hospital his pain has significantly improved and he is tolerating PO liquids without difficulty. Review of vitals from today are normal. History of recurrent diverticulitis Acute abdominal pain - uncomplicated sigmoid diverticulitis - Full liquid diet as tolerated - Continue with antibiotic therapy - Follow up surgical recommendations given recurrent disease - Patient had colonoscopy in early 2016, however if surgical resection is considered he would benefit from repeat procedure prior to intervention which can be performed electively as outpatient in 2 months following resolution of acute symptoms. Will continue to monitor patient clinical course.
--- NOTE | 2018-02-25 08:29 | CP.PCM.PN ---
Subjective - Date & Time of Evaluation Date of Evaluation: 02/25/18 Time of Evaluation: 08:28 - Subjective Subjective: General surgery progress note for Dr. Oscar-Rosy Silva, PGY-2 Pt S & E at bedside at 0720 Pt reports abdominal pain much improved. Had one episode of non bloody diarrhea. Denies N & V, F & C, other complaints. Objective - Vital Signs/Intake and Output Vital Signs (last 24 hours): Temp Pulse Resp BP Pulse Ox 97.5 F L 58 L 20 115/68 100 02/25/18 05:00 02/25/18 05:00 02/25/18 05:00 02/25/18 05:00 02/25/18 05:00 - Medications Medications: Current Medications Enoxaparin Sodium (Lovenox) 40 mg SC DAILY BRENDA PRN Reason: Protocol Ciprofloxacin (Cipro 400mg/200ml Dsw) 400 mg in 200 mls @ 200 mls/hr IVPB Q12 BRENDA PRN Reason: Protocol Last Admin: 02/24/18 21:35 Dose: 200 mls/hr Sodium Chloride (Sodium Chloride 0.9%) 1,000 mls @ 125 mls/hr IV .Q8H BRENDA Stop: 02/25/18 08:44 Last Admin: 02/25/18 04:00 Dose: 125 mls/hr Metronidazole (Flagyl 500mg/100ml Ns) 100 mls @ 100 mls/hr IVPB Q8@0500,1300, 2100 BRENDA PRN Reason: Protocol Last Admin: 02/25/18 04:01 Dose: 100 mls/hr Ketorolac Tromethamine (Toradol) 15 mg IVP Q6 PRN PRN Reason: Pain, moderate (4-7) Ketorolac Tromethamine (Toradol) 30 mg IVP Q6 PRN PRN Reason: Pain, severe (8-10) - Labs Labs: 02/24/18 10:10 02/24/18 10:10 - Constitutional Appears: Non-toxic, No Acute Distress - Head Exam Head Exam: ATRAUMATIC, NORMAL INSPECTION, NORMOCEPHALIC - Eye Exam Eye Exam: EOMI, Normal appearance - ENT Exam ENT Exam: Mucous Membranes Moist, Normal Exam - Neck Exam Neck Exam: Full ROM, Normal Inspection - Respiratory Exam Respiratory Exam: NORMAL BREATHING PATTERN - Cardiovascular Exam Cardiovascular Exam: REGULAR RHYTHM - GI/Abdominal Exam GI & Abdominal Exam: Soft, Tenderness (mild, LLQ). absent: Distended, Firm, Guarding, Rigid - Extremities Exam Extremities Exam: Normal Inspection - Neurological Exam Neurological Exam: Alert, Awake, CN II-XII Intact, Oriented x3 - Psychiatric Exam Psychiatric exam: Normal Affect, Normal Mood - Skin Skin Exam: Dry, Intact, Normal Color, Warm Assessment and Plan - Assessment and Plan (Free Text) Assessment: 38M w/recurrent diverticulitis- improving Plan: Ok to advance to clears Cont Abx FU AM labs Pain control PRN Will need colonoscopy in 6-8 weeks prior to surgical intervention DW attending Shira, PGY-2
[2018-02-25 09:00] LABS: BASO # 0.1 K/uL (0.0-0.2); BASO % 0.9 % (0.0-2.0); EOS # 0.2 K/uL (0.0-0.7); EOS % 2.5 % (0.0-4.0); LYMPH # 2.1 K/uL (1.0-4.3); MEAN CORPUSCULAR HEMOGLOBIN 28.6 pg (27.0-31.0); MEAN CORPUSCULAR HGB CONC 34.9 g/dL (33.0-37.0); MONO # 0.6 K/uL (0.0-0.8); MONO % 8.7 % (0.0-10.0); NEUT # 4.3 K/uL (1.8-7.0); NEUT % 58.9 % (50.0-75.0); NRBC % 0.1 % (0.0-0.0); RBC 4.9 Mil/uL (4.40-5.90); RED CELL DISTRIBUTION WIDTH 13.6 % (11.5-14.5); WHITE BLOOD COUNT 7.3 K/uL (4.8-10.8)
[2018-02-25] MEDS ORDERED: Enoxaparin 40 mg Syringe SC SCH (09:00)
[2018-02-25] MEDS: Ciprofloxacin 400mg/200ml D5W 400 MG/200 ML BAG IVPB SCH (09:06)
[2018-02-25 09:11] VITALS: BP 132/82; PULSE 63; RESP 16; TEMP 97.6
[2018-02-25 09:12] LABS: BLOOD UREA NITROGEN 12 mg/dl (9-20); CALCIUM 8.2 mg/dL (8.4-10.2); GFR AFRICAN-AMERICAN > 60; GFR NON-AFRICAN AMERICAN > 60
[2018-02-25 09:26] LABS: IRON 57 ug/dL (49-181)
[2018-02-25 09:36] LABS: % IRON SATURATION 19 % (20-55); TOTAL IRON BINDING CAPACITY 294 ug/dL (250-450)
--- NOTE | 2018-02-25 10:20 | CP.PCM.PN ---
Subjective - Date & Time of Evaluation Date of Evaluation: 02/25/18 Time of Evaluation: 10:17 - Subjective Subjective: Patient seen and examined at bedside. He endorses having improving left lower abdominal pain. He states that had a loose BM last night. Per nurse, patient did not receive any pain meds over night. Patient's charts, labs, and nurse notes reviewed. Objective - Vital Signs/Intake and Output Vital Signs (last 24 hours): Temp Pulse Resp BP Pulse Ox 97.6 F 63 16 132/82 100 02/25/18 09:00 02/25/18 09:00 02/25/18 09:00 02/25/18 09:00 02/25/18 09:00 - Medications Medications: Current Medications Enoxaparin Sodium (Lovenox) 40 mg SC DAILY BRENDA PRN Reason: Protocol Last Admin: 02/25/18 09:09 Dose: Not Given Ciprofloxacin (Cipro 400mg/200ml Dsw) 400 mg in 200 mls @ 200 mls/hr IVPB Q12 BRENDA PRN Reason: Protocol Last Admin: 02/25/18 09:06 Dose: 200 mls/hr Metronidazole (Flagyl 500mg/100ml Ns) 100 mls @ 100 mls/hr IVPB Q8@0500,1300, 2100 BRENDA PRN Reason: Protocol Last Admin: 02/25/18 04:01 Dose: 100 mls/hr Ketorolac Tromethamine (Toradol) 15 mg IVP Q6 PRN PRN Reason: Pain, moderate (4-7) Ketorolac Tromethamine (Toradol) 30 mg IVP Q6 PRN PRN Reason: Pain, severe (8-10) - Labs Labs: 02/25/18 08:52 02/25/18 08:52 - Constitutional Appears: No Acute Distress - Eye Exam Eye Exam: Normal appearance - ENT Exam ENT Exam: Mucous Membranes Moist - Respiratory Exam Respiratory Exam: Clear to Ausculation Bilateral, NORMAL BREATHING PATTERN - Cardiovascular Exam Cardiovascular Exam: REGULAR RHYTHM, RRR, +S1, +S2 - GI/Abdominal Exam GI & Abdominal Exam: Soft, Tenderness (LLQ), Normal Bowel Sounds. absent: Distended, Guarding, Rigid, Rebound - Extremities Exam Extremities Exam: Normal Inspection. absent: Pedal Edema, Tenderness - Back Exam Back Exam: NORMAL INSPECTION. absent: CVA tenderness (L), CVA tenderness (R) - Neurological Exam Neurological Exam: Alert, Awake, Oriented x3 - Psychiatric Exam Psychiatric exam: Normal Affect, Normal Mood - Skin Skin Exam: Dry, Intact, Warm Assessment and Plan - Assessment and Plan (Free Text) Assessment: 38 y/o obese male w/ pmhx of pre-diabetes, hypertriglyceridemia, and diverticulitis (dx on CT October 2014) admitted for severe abdominal pain. Acute on Chronic Diverticulitis -Symptomatic, uncomplicated -pain improving -afebrile, no leukocytosis -C/w cirpo 400 mg IV and metronidazole 500mg IV day #2/10 -Toradol 15mg IV Q6 PRN for moderate, 30 mg IV Q6 PRN for severe pain -GI and surgery consulted; appreciate recs; patient will need outpatient colonoscopy prior to surgical intervention -blood cx: no growth after 24 hrs. Urine cultures no growth -Abdominal/Pelvis CT showed "pattern of diverticulitis" proximal to mid sigmoid colon w/ ddx infectious/inflammatory causes and underlying potential neoplasm -last colonoscopy 08/18/16: non-bleeding internal hemorrhoids, no diverticulosis/ diverticulitis Pre-diabetes -last hgbA1c (12/31/2017) 6.1 -random glucose 110, U/A glucose >500 -will follow urine culture Hx of Hypertriglycerdemia -Triglyceride: 243 -will monitor outpatient Diet: -advance diet as tolerated DVT prophylaxis: -Lovenox 40 SC Code: -Full code.
[2018-02-25] MEDS ORDERED: Potassium Chloride 20 mEq 100 ML IVPB SCH (14:39)
--- NOTE | 2018-02-27 19:22 | CP.PCM.DIS ---
Provider - Provider Date of Admission: 02/24/18 14:28 Attending physician: Alisa Nuñez MD Consults: Dr. Cabrera (GI), Dr. Oscar (surgery) Time Spent in preparation of Discharge (in minutes): 35 Diagnosis - Discharge Diagnosis (1) Abdominal pain Status: Resolved Priority: Low (2) Colitis Status: Chronic Priority: Low Hospital Course - Lab Results Lab Results: Micro Results 02/24/18 10:10 Blood-Venous Blood Culture - Preliminary NO GROWTH AFTER 3 DAYS 02/24/18 10:20 Urine,Clean Catch Urine Culture - Final No Growth (<1,000 CFU/ML) Most Recent Lab Values WBC 7.3 K/uL (4.8-10.8) 02/25/18 08:52 RBC 4.90 Mil/uL (4.40-5.90) 02/25/18 08:52 Hgb 14.0 g/dL (12.0-18.0) 02/25/18 08:52 Hct 40.2 % (35.0-51.0) 02/25/18 08:52 MCV 82.0 fl (80.0-94.0) 02/25/18 08:52 MCH 28.6 pg (27.0-31.0) 02/25/18 08:52 MCHC 34.9 g/dL (33.0-37.0) 02/25/18 08:52 RDW 13.6 % (11.5-14.5) 02/25/18 08:52 Plt Count 292 K/uL (130-400) 02/25/18 08:52 MPV 9.0 fl (7.2-11.7) 02/25/18 08:52 Neut % (Auto) 58.9 % (50.0-75.0) 02/25/18 08:52 Lymph % (Auto) 29.0 % (20.0-40.0) 02/25/18 08:52 [place] % (Auto) 8.7 % (0.0-10.0) 02/25/18 08:52 Eos % (Auto) 2.5 % (0.0-4.0) 02/25/18 08:52 Baso % (Auto) 0.9 % (0.0-2.0) 02/25/18 08:52 Neut # (Auto) 4.3 K/uL (1.8-7.0) 02/25/18 08:52 Lymph # (Auto) 2.1 K/uL (1.0-4.3) 02/25/18 08:52 [place] # (Auto) 0.6 K/uL (0.0-0.8) 02/25/18 08:52 Eos # (Auto) 0.2 K/uL (0.0-0.7) 02/25/18 08:52 Baso # (Auto) 0.1 K/uL (0.0-0.2) 02/25/18 08:52 Sodium 141 mmol/l (132-148) 02/25/18 08:52 Potassium 3.4 MMOL/L (3.6-5.0) L 02/25/18 08:52 Chloride 107 mmol/L (98-107) 02/25/18 08:52 Carbon Dioxide 25 mmol/L (22-30) 02/25/18 08:52 Anion Gap 12 (10-20) 02/25/18 08:52 BUN 12 mg/dl (9-20) 02/25/18 08:52 Creatinine 0.8 mg/dl (0.8-1.5) 02/25/18 08:52 Est GFR ( Amer) > 60 02/25/18 08:52 Est GFR (Non-Af Amer) > 60 02/25/18 08:52 Random Glucose 98 mg/dL (75-110) 02/25/18 08:52 Calcium 8.2 mg/dL (8.4-10.2) L 02/25/18 08:52 Phosphorus 3.4 mg/dl (2.5-4.5) 02/25/18 08:52 Magnesium 1.8 MG/DL (1.6-2.3) 02/25/18 08:52 Iron 57 ug/dL (49-181) 02/25/18 08:52 TIBC 294 ug/dL (250-450) 02/25/18 08:52 % Saturation 19 % (20-55) L 02/25/18 08:52 Total Bilirubin 0.5 mg/dl (0.2-1.3) 02/24/18 10:10 AST 20 U/L (17-59) 02/24/18 10:10 ALT 27 U/L (21-72) 02/24/18 10:10 Alkaline Phosphatase 66 U/L (38-126) 02/24/18 10:10 Total Protein 7.2 G/DL (6.3-8.2) 02/24/18 10:10 Albumin 4.1 g/dL (3.5-5.0) 02/24/18 10:10 Globulin 3.1 gm/dL (2.2-3.9) 02/24/18 10:10 Albumin/Globulin Ratio 1.3 (1.0-2.1) 02/24/18 10:10 Urine Color Yellow (YELLOW) 02/24/18 10:20 Urine Clarity Clear (Clear) 02/24/18 10:20 Urine pH 6.0 (5.0-8.0) 02/24/18 10:20 Ur Specific [place] 1.013 (1.003-1.030) 02/24/18 10:20 Urine Protein Negative mg/dL (NEGATIVE) 02/24/18 10:20 Urine Glucose (UA) >=500 mg/dL (Normal) 02/24/18 10:20 Urine Ketones Negative mg/dL (NEGATIVE) 02/24/18 10:20 Urine Blood Negative (NEGATIVE) 02/24/18 10:20 Urine Nitrate Negative (NEGATIVE) 02/24/18 10:20 Urine Bilirubin Negative (NEGATIVE) 02/24/18 10:20 Urine Urobilinogen 0.2-1.0 mg/dL (0.2-1.0) 02/24/18 10:20 Ur Leukocyte Esterase Neg [place]/uL (Negative) 02/24/18 10:20 Urine RBC (Auto) 3 /hpf (0-3) 02/24/18 10:20 Urine Microscopic WBC < 1 /hpf (0-5) 02/24/18 10:20 - Hospital Course Hospital Course: 38 y/o male w/ pmhx of pre-diabetes, hypertriglyceridemia, and diverticulitis ( diagnosed October [address]) who was admitted for severe left lower quadrant abdominal pain. Abdominal/Pelvis CT showed pattern of diverticulitis proximal to mid sigmoid colon w/ ddx infectious/inflammatory causes and underlying potential neoplasm. (Last colonoscopy 08/18/16: non-bleeding internal hemorrhoids, no evidence of diverticulosis). Patient was started on Cirpofloxacin 400 mg IV 200mL/hr, Metronidazole 500 mg 100mL/hr, Toradol 30mg IV , Zofran 4 mg, and given IVF 1 L NS bolus. Surgery was consulted and recommended a repeat colonoscopy outpatient in 2 months prior to surgical intervention. Patient's symptoms improved; he tolerated advancement of diet. Patient advised to continue antibiotics for a total of 10 days. He was discharged to home and will follow up in [facility] on 03/04/2018 at 3PM w/ Dr. Josue Singleton. He will need a referral to GI clinic. Patient was disharged on: Metronidazole 500mg PO Q8 for 8 days Cirpofloxacin 500mg PO Q12 for 8 days Follow blood culture - Date & Time of H&P Date of H&P: 02/24/18 Time of H&P: 15:30 Discharge Exam - Head Exam Head Exam: NORMAL INSPECTION - Eye Exam Eye Exam: Normal appearance. absent: Scleral icterus - ENT Exam ENT Exam: Mucous Membranes Moist - Respiratory Exam Respiratory Exam: Clear to PA & Lateral, NORMAL BREATHING PATTERN - Cardiovascular Exam Cardiovascular Exam: REGULAR RHYTHM, +S1, +S2 - GI/Abdominal Exam GI & Abdominal Exam: Normal Bowel Sounds, Unremarkable. absent: Distended, Guarding, Rebound, Rigid, Tenderness - Extremities Exam Extremities exam: normal inspection - Back Exam Back exam: absent: CVA tenderness (L), CVA tenderness (R) - Neurological Exam Neurological exam: Alert, Oriented x3 - Psychiatric Exam Psychiatric exam: Normal Affect, Normal Mood - Skin Skin Exam: Dry, Intact, Warm Discharge Plan - Discharge Medications Prescriptions: Ciprofloxacin [Cipro] 500 mg PO Q12 8 Days tab Metronidazole [Flagyl] 500 mg PO Q8 8 Days tablet - Follow Up Plan Condition: IMPROVED Disposition: HOME/ ROUTINE Patient education suggested?: Yes Instructions: Diverticulitis, Acute Abdominal Pain (DC) Additional Instructions: follow up in the [facility] as scheduled for 03/04/18 at 3PM w/ Dr. Josue Singleton. Will refer patient to GI clinic at [facility] Take antibiotics as prescribed Return to the ED with any worsening or concerning symptoms Referrals: [facility] [Outside] [facility] [Outside] Ludin Paz MD [Staff Provider] -
== END 2018-02-25 15:40 | disposition home or self-care (01) | DRG 183 ==
LOC: H.ER 08:36 → H.ERHOLD 14:28 → H.PEDS 16:30
PROVIDERS: ADMIT Family Medicine Geriatric Medicine; ATTEND Family Medicine Geriatric Medicine
DX: K57.32 Diverticulitis of large intestine without perforation or abscess without bleeding (principal); K52.9 Noninfective gastroenteritis and colitis, unspecified; R16.2 Hepatomegaly with splenomegaly, not elsewhere classified; R73.03 Prediabetes; E66.9 Obesity, unspecified; Z68.30 Body mass index [BMI] 30.0-30.9, adult; E78.2 Mixed hyperlipidemia; K76.0 Fatty (change of) liver, not elsewhere classified; J45.909 Unspecified asthma, uncomplicated; Z91.013 Allergy to seafood

== ENCOUNTER 2018-07-03 11:39 | Emergency (ER) | payer SELFPAY ==
[2018-07-03 11:48] VITALS: BMI 29.9
--- NOTE | 2018-07-03 12:25 | ED PDOC ---
HPI: Male Pain Time Seen by Provider: 07/03/18 11:57 Chief Complaint (Nursing): Abdominal Pain Chief Complaint (Provider): Abdominal pain History Per: Patient History/Exam Limitations: no limitations Additional Complaint(s): Pt reports suprapubic pain with dysuria X 1 week, intermittent, no radiation, feels different from diverticulitis pain. Denies fever, nausea, vomiting, constipation, diarrhea, hematuria, back pain. Past Medical History Reviewed: Nursing Documentation, Vital Signs Vital Signs: Last Vital Signs Temp 97.5 F L 07/03/18 11:47 Pulse 84 07/03/18 11:47 Resp BP 134/84 07/03/18 11:47 Pulse Ox 98 07/03/18 11:47 - Medical History PMH: Diabetes (borderline, not on meds), Diverticulitis, Migraine Denies: Atrial Fibrillation, Cardia Arrhythmia, HIV, Hypercholesterolemia, Chronic Kidney Disease - Family History Family History: States: Unknown Family Hx, Diabetes - Social History Current smoker - smoking cessation education provided: No Alcohol: None - Immunization History Hx Tetanus Toxoid Vaccination: No Hx Influenza Vaccination: No Hx Pneumococcal Vaccination: No - Home Medications Home Medications: Ambulatory Orders Medication Instructions Recorded Ciprofloxacin HCl [Cipro] 500 mg PO BID #14 tab 03/25/18 Metronidazole [Flagyl] 500 mg PO Q8 #21 tab 03/25/18 Nitrofurantoin Macrocrystals 100 mg PO BID #13 cap 07/03/18 [Macrobid] Phenazopyridine [Pyridium] 200 mg PO TID PRN #6 tab 07/03/18 - Allergies Allergies/Adverse Reactions: Allergies Allergy/AdvReac Type Severity Reaction Status Date / Time FISH Allergy RASH Verified 07/03/18 11:52 Fish Containing Products Allergy RASH Verified 07/03/18 11:52 Review of Systems Constitutional: Negative for: Fever, Chills Cardiovascular: Negative for: Chest Pain Respiratory: Negative for: Cough Gastrointestinal: Positive for: Abdominal Pain. Negative for: Nausea, Vomiting, Diarrhea, Constipation, Hematochezia, Hematemesis Genitourinary Male: Positive for: Dysuria. Negative for: Frequency, Incontinence, Hematuria, Penile Discharge, Scrotal Pain, Rash, Penile Pain Musculoskeletal: Negative for: Back Pain Skin: Negative for: Rash, Lesions Neurological: Negative for: Headache Physical Exam - Reviewed Nursing Documentation Reviewed: Yes Vital Signs Reviewed: Yes - Physical Exam Appears: Positive for: Well, No Acute Distress Head Exam: Positive for: ATRAUMATIC, NORMAL INSPECTION Skin: Positive for: Normal Color, Warm, Dry Eye Exam: Positive for: Normal appearance, EOMI, PERRL Cardiovascular/Chest: Positive for: Regular Rate, Rhythm Respiratory: Positive for: Normal Breath Sounds Gastrointestinal/Abdominal: Positive for: Bowel Sounds, Soft, Tenderness (Suprapubic). Negative for: Mass, Distended, Guarding, Rebound Back: Positive for: Normal Inspection. Negative for: L CVA Tenderness, R CVA Tenderness Neurologic/Psych: Positive for: Alert, Oriented - Laboratory Results Result Diagrams: 07/03/18 14:30 07/03/18 14:30 - ECG O2 Sat by Pulse Oximetry: 98 Medical Decision Making Medical Decision Makin yo male with dysuria and suprapubic pain. - UA - urine culture - renal/bladder ultrasound Accession No. : [id number] Patient Name / ID : PAM LINDO / [id number] Exam Date : 07/03/2018 15:17:11 ( Approved ) Study Comment : Sex / Age : M / 38Y Creator : Jake Manuel MD Dictator : Jake Manuel MD Senior Database Administrator : Medical Insurance Coding Specialist : Jake Manuel MD Approver2 : Report Date : 07/03/2018 16:15:02 My Comment : Date of service: 07/03/2018 PROCEDURE: Ultrasound of the Kidneys HISTORY: Suprapubic pain COMPARISON: Abdomen pelvis CT 03/25/2018.. TECHNIQUE: Sonogram of the kidneys. FINDINGS: RIGHT KIDNEY: Measures: 11.5 x 4.4 x 4.9 cm. Normal in size, contour and echogenicity. No stone, solid mass lesion or hydronephrosis visualized. LEFT KIDNEY: Measures: 10.5 x 6.2 x 5.6 cm. Normal in size, contour and echogenicity. No stone, solid mass lesion or hydronephrosis visualized. OTHER FINDINGS: Unremarkable urinary bladder 10.4 cc postvoid residual from prevoid volume of 149.3 cc. IMPRESSION: No suspicious interval renal disease sonographically identified bilaterally as compared prior and pelvis CT 03/25/2018. Disposition - Clinical Impression Clinical Impression: Dysuria, Symptomatic urinary tract infection - Disposition Referrals: [facility] [place] [Outside] Disposition: Routine/Home Disposition Time: 16:32 Condition: STABLE Prescriptions: Nitrofurantoin Macrocrystals [Macrobid] 100 mg PO BID #13 cap Phenazopyridine [Pyridium] 200 mg PO TID PRN #6 tab PRN Reason: Bladder Spasm Instructions: Urinary Tract Infections in Adults, Dysuria, Adult (DC) Forms: [employer] (Burmese) Print Language: TAMAZIGHT
[2018-07-03 12:35] LABS: SQUAMOUS EPITHIAL < 1 /hpf (0-5); URINE BILIRUBIN NEGATIVE (NEGATIVE); URINE BLOOD NEGATIVE (NEGATIVE); URINE CLARITY SLIGHTY-CLOUDY (Clear); URINE COLOR YELLOW (YELLOW); URINE GLUCOSE (UA) NEG (NEGATIVE); URINE LEUKOCYTE ESTERASE NEG Leu/uL (Negative); URINE PROTEIN 30 mg/dL (NEGATIVE); URINE UROBILINOGEN 0.2-1.0 mg/dL (0.2-1.0)
[2018-07-03 14:39] LABS: BASO # 0.1 K/uL (0.0-0.2); BASO % 0.7 % (0.0-2.0); EOS # 0.2 K/uL (0.0-0.7); EOS % 2.8 % (0.0-4.0); HEMOGLOBIN 14.7 g/dL (12.0-18.0); LYMPH # 2.1 K/uL (1.0-4.3); LYMPH % 26.8 % (20.0-40.0); MEAN CELL VOLUME 83.6 fl (80.0-94.0); MEAN CORPUSCULAR HEMOGLOBIN 27.8 pg (27.0-31.0); MEAN CORPUSCULAR HGB CONC 33.2 g/dL (33.0-37.0); MEAN PLATELET VOLUME 8.7 fl (7.2-11.7); MONO # 0.9 K/uL (0.0-0.8); NEUT # 4.5 K/uL (1.8-7.0); NEUT % 57.7 % (50.0-75.0); NRBC % 0.1 % (0.0-0.0); RBC 5.28 Mil/uL (4.40-5.90); RED CELL DISTRIBUTION WIDTH 13.8 % (11.5-14.5); WHITE BLOOD COUNT 7.9 K/uL (4.8-10.8)
[2018-07-03 14:47] LABS: ALB/GLOB RATIO 1.2 (1.0-2.1); ALBUMIN 4.1 g/dL (3.5-5.0); ALT/SGPT 26 U/L (21-72); AST/SGOT 17 U/L (17-59); BLOOD UREA NITROGEN 18 mg/dl (9-20); CALCIUM 9.1 mg/dL (8.4-10.2); GFR NON-AFRICAN AMERICAN > 60
--- NOTE | 2018-07-03 16:18 | US ---
Date of service: 07/03/2018 PROCEDURE: Ultrasound of the Kidneys HISTORY: Suprapubic pain COMPARISON: Abdomen pelvis CT 03/25/2018.. TECHNIQUE: Sonogram of the kidneys. FINDINGS: RIGHT KIDNEY: Measures: 11.5 x 4.4 x 4.9 cm. Normal in size, contour and echogenicity. No stone, solid mass lesion or hydronephrosis visualized. LEFT KIDNEY: Measures: 10.5 x 6.2 x 5.6 cm. Normal in size, contour and echogenicity. No stone, solid mass lesion or hydronephrosis visualized. OTHER FINDINGS: Unremarkable urinary bladder 10.4 cc postvoid residual from prevoid volume of 149.3 cc. IMPRESSION: No suspicious interval renal disease sonographically identified bilaterally as compared prior and pelvis CT 03/25/2018.
[2018-07-03 16:45] VITALS: BP 142/78; PULSE 75; RESP 18; TEMP 98.2
[2018-07-05 14:15] VITALS: O2SAT 98
== END 2018-07-03 16:57 | disposition home or self-care (01) ==
LOC: H.ER 11:39
DX: N39.0 Urinary tract infection, site not specified (principal); R30.0 Dysuria

== ENCOUNTER 2018-09-10 07:18 | Observation (INO) | payer SELFPAY ==
[2018-09-10 07:18] VITALS: BMI 29.9
[2018-09-10 07:53] VITALS: RESP 16
[2018-09-10] MEDS ORDERED: Sodium Chloride 0.9% 1,000 ML IV SCH (08:00)
[2018-09-10 08:06] VITALS: TEMP 98.2
[2018-09-10 08:08] LABS: BASO % 0.4 % (0.0-2.0); EOS # 0.2 K/uL (0.0-0.7); EOS % 3.4 % (0.0-4.0); HEMOGLOBIN 14.9 g/dL (12.0-18.0); LYMPH # 2.4 K/uL (1.0-4.3); LYMPH % 35.9 % (20.0-40.0); MEAN CELL VOLUME 83.5 fl (80.0-94.0); MEAN CORPUSCULAR HGB CONC 33.6 g/dL (33.0-37.0); MEAN PLATELET VOLUME 9.3 fl (7.2-11.7); MONO # 0.7 K/uL (0.0-0.8); MONO % 9.9 % (0.0-10.0); NEUT # 3.4 K/uL (1.8-7.0); NEUT % 50.4 % (50.0-75.0); NRBC % 0.1 % (0.0-0.0); RBC 5.32 Mil/uL (4.40-5.90); RED CELL DISTRIBUTION WIDTH 13.7 % (11.5-14.5); WHITE BLOOD COUNT 6.8 K/uL (4.8-10.8)
[2018-09-10 08:13] LABS: INR 0.9; PROTHROMBIN TIME 10.4 Seconds (9.8-13.1)
[2018-09-10 08:16] LABS: PARTIAL THROMBOPLASTIN TIME 32.7 Seconds (25.6-37.1)
[2018-09-10 08:18] LABS: ALB/GLOB RATIO 1.1 (1.0-2.1); ALBUMIN 3.8 g/dL (3.5-5.0); ALT/SGPT 27 U/L (21-72); AST/SGOT 21 U/L (17-59); BLOOD UREA NITROGEN 22 mg/dl (9-20); CALCIUM 9.1 mg/dL (8.4-10.2); GFR NON-AFRICAN AMERICAN > 60; HDL CHOLESTEROL 28 MG/DL (30-70)
--- NOTE | 2018-09-10 08:23 | ED PDOC ---
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 Patient states that he went to the bathroom around 6am and went to bed right after. He states he lay in bed staring up at the wall and started to fell left-sided weakness and that the whole left side would not move as tried to reach for his phone. Patient states that he remembered reading online that he should try to cough in this situation. He reports that he was initially unable to cough, but after continued attempts was able to cough harder and further states that his numbness/weakness started to go away. Patient tried calling 911, however reports that they hung up on him because they were unable to understand him. After about x20 minutes, he experienced the symptoms again, prompting him to call 911 again, who told him that EMS was on their way. Patient is complaining of mild blurry vision and had some trouble speaking. He states that he currently has some dizziness. PMD: [facility] NIHSS Stroke Scale - Date/Time Evaluation Performed When Was NIHSS Performed: Baseline - How Severe is the Stroke Level of Consciousness: 0=Alert LOC to Questions: 0=Both comments correct LOC to commands: 0=Obeys both correctly Best Gaze: 0=Normal Visual: 0=No visual loss Facial: 0=Normal Motor Arm - Left: 0=No drift Motor Arm - Right: 0=No drift Motor Leg - Left: 1=Drift before 5 sec Motor Leg - Right: 0=No drift Limb Ataxia: 0=Absent Sensory: 0=Normal Best Language: 0=No aphasia Dysarthia: 0=Normal articulation Extinction & Inattention (Neglect): 0=Normal, no object Score: 1 rTPA Inclusion/Exclusion - Refusal of Treatment Patient Refused Treatment: No - Inclusion Criteria for Altepase Patient is 18 years or Older: Yes The Clinical Diagnosis of Ischemic Stroke That is Causing a Potentially Disabling Neurological Deficit: No Time of Onset is Well Established to be Less Than 270 Minute Before Treatment Would Begin: No Risk/Benefit Discussed With Patient/Family Member Present: Yes - Exclusion Criteria for Altepase Uncontrolled Hypertension at Time of Treatment (Systolic BP above 185 or Diastolic BP above 110 mmHg): No Active Internal Bleeding: No Known Bleeding Diathesis Including but Not Limited to: Platelets Below 100,000/mm,PTT Above 40 sec After Heparin Use, Current Use of Oral Anitcoagulant With INR Greater Than 1.7 or PT Greater Than 15 secs: No Evidence of an Intracranial Hemorrhage: No Evidence of Major Acute Infarct With Signs Greater Than 1/3 MCA Territory: No Suspicion of Subarachnoid Hemorrhage on Pretreatment Evaluation Even if CT Head Negative For Hemorrhage: No - Warning to TPA With Conditions Following Conditions Weighed Against Anticipated Benefit: No Condition: Stroke Serevity Too Mild (case d/w Dr. Sotomayor after initial CT head) Past Medical History Reviewed: Historical Data, Nursing Documentation, Vital Signs Vital Signs: Last Vital Signs Temp 98.2 F 09/10/18 08:01 Pulse 61 09/10/18 08:01 Resp 16 09/10/18 08:01 BP 128/77 09/10/18 08:01 Pulse Ox 100 09/10/18 08:01 - Medical History PMH: Diabetes (borderline, not on meds), Diverticulitis, Migraine Denies: Atrial Fibrillation, Cardia Arrhythmia, HIV, Hypercholesterolemia, Chronic Kidney Disease - Surgical History Surgical History: No Surg Hx - Family History Family History: States: Diabetes - Immunization History Hx Tetanus Toxoid Vaccination: No Hx Influenza Vaccination: No Hx Pneumococcal Vaccination: No - Home Medications Home Medications: Ambulatory Orders Medication Instructions Recorded Ciprofloxacin HCl [Cipro] 500 mg PO BID #14 tab 03/25/18 Metronidazole [Flagyl] 500 mg PO Q8 #21 tab 03/25/18 Nitrofurantoin Macrocrystals 100 mg PO BID #13 cap 07/03/18 [Macrobid] Phenazopyridine [Pyridium] 200 mg PO TID PRN #6 tab 07/03/18 - Allergies Allergies/Adverse Reactions: Allergies Allergy/AdvReac Type Severity Reaction Status Date / Time FISH Allergy RASH Verified 09/10/18 09:01 Fish Containing Products Allergy RASH Verified 09/10/18 09:01 Review of Systems ROS Statement: Except As Marked, All Systems Reviewed And Found Negative Eyes: Positive for: Vision Change Neurological: Positive for: Weakness, Dizziness Physical Exam - Reviewed Nursing Documentation Reviewed: Yes Vital Signs Reviewed: Yes - Physical Exam Appears: Positive for: Non-toxic, No Acute Distress Head Exam: Positive for: ATRAUMATIC, NORMOCEPHALIC Skin: Positive for: Normal Color, Warm, Dry Eye Exam: Positive for: Normal appearance, EOMI, PERRL ENT: Positive for: Normal ENT Inspection Neck: Positive for: Normal, Painless ROM, Supple Cardiovascular/Chest: Positive for: Regular Rate, Rhythm. Negative for: Murmur Respiratory: Positive for: Normal Breath Sounds. Negative for: Respiratory Distress Back: Positive for: Normal Inspection. Negative for: L CVA Tenderness, R CVA Tenderness, Vertebral Tenderness Extremity: Negative for: Pedal Edema, Deformity Neurologic/Psych: Positive for: Alert, Oriented, Other (weakness in left lower extremity with a decrease in sensation). Negative for: Facial Droop - Laboratory Results Result Diagrams: 09/10/18 07:50 09/10/18 07:50 Lab Results: PT 10.4 Seconds (9.8-13.1) 09/10/18 07:50 INR 0.9 09/10/18 07:50 APTT 32.7 Seconds (25.6-37.1) 09/10/18 07:50 Total Bilirubin 0.3 mg/dl (0.2-1.3) 09/10/18 07:50 AST 21 U/L (17-59) 09/10/18 07:50 ALT 27 U/L (21-72) 09/10/18 07:50 Alkaline Phosphatase 103 U/L (38-126) 09/10/18 07:50 Total Protein 7.2 G/DL (6.3-8.2) 09/10/18 07:50 Albumin 3.8 g/dL (3.5-5.0) 09/10/18 07:50 Globulin 3.4 gm/dL (2.2-3.9) 09/10/18 07:50 Albumin/Globulin Ratio 1.1 (1.0-2.1) 09/10/18 07:50 - ECG O2 Sat by Pulse Oximetry: 100 (RA) Pulse Ox Interpretation: Normal Medical Decision Making Medical Decision Making: Time: 0750 Impression: possible stroke Plan: --Type and screen --CT head without contrast --EKG --CMP --Hemoglobin A1C --Lipid panel --Troponin I --PT --PTT --CBC with differential --Stroke team consult --Chest xray --Sodium chloride 1,000 ml --potline monitor --Saline lock --Vital signs Q15 min --Glucose, Blood --Nursing swallow screen Time: [address] Finding: HISTORY: code stroke COMPARISON: 01/08/2018. TECHNIQUE: Axial computed tomography images were obtained through the head/brain without intravenous contrast. Supplemental Coronal and Sagittal projections created and reviewed. Radiation dose: Total exam DLP = <inf_radiation_dlp> mGy-cm. This CT exam was performed using one or more of the following dose reduction techniques: Automated exposure control, adjustment of the mA and/or kV according to patient size, and/or use of iterative reconstruction technique. FINDINGS: HEMORRHAGE: No intracranial hemorrhage. BRAIN: No mass effect or edema. No atrophy or chronic microvascular ischemic changes. VENTRICLES: Unremarkable. No hydrocephalus. CALVARIUM: Unremarkable. PARANASAL SINUSES: Unremarkable as visualized. No significant inflammatory changes. MASTOID AIR CELLS: Unremarkable as visualized. No inflammatory changes. OTHER FINDINGS: None. IMPRESSION: No acute intracranial abnormalities. No significant findings to account for the clinical presentation. No significant interval change compared to the prior examination(s). Code stroke protocol: Study completed 07:48. Interpretation finalized and available for review 08:03. Time: 08 --Spoke with Dr. Sotomayor, who asked for a CT of the head and neck. Time: 946 CT head/neck FINDINGS: HEAD: Right: The intracranial internal carotid artery, and anterior and middle cerebral arteries are widely patent. Left: The intracranial internal carotid artery, and anterior and middle cerebral arteries are widely patent. Posterior circulation: The visualized intracranial vertebral arteries, basilar artery and posterior cerebral arteries are widely patent. There is no endoluminal filling defect to suggest thrombus. There is no intracranial saccular aneurysm. NECK: There is a three vessel aortic arch. There is no stenosis at the origins of the great vessels at the level of the aortic arch. No atherosclerotic calcification or mural plaque present. Right Carotid: On the right, the common carotid, internal carotid and external carotid arteries are widely patent. There is no hemodynamically significant stenosis in the internal carotid artery by NASCET criteria. Left Carotid: On the left, the common carotid, internal carotid and external carotid arteries are widely patent. There is no hemodynamically significant stenosis in the internal carotid artery by NASCET criteria. The vertebral arteries are widely patent. The visualized soft tissues of the neck are normal. The visualized brain and cervical spine are within normal limits. The lung apices are clear. IMPRESSION: 1. No evidence of endoluminal thrombus,occlusion or definite significant stenosis in the intracranial arteries. 2. No evidence of hemodynamically significant stenosis in the internal carotid arteries. 3. Patent bilateral vertebral arteries. Time: 1020 --Patient's symptoms have improved. He is showing no signs of weakness or decreased sensation in left lower extremity. Time: 1020 --Discussed CT neck findings with Dr. Sotomayor. -------- --------- Scribe Attestation: Documented by Tyrone Dunham, acting as a scribe for Jordana Beal MD. Provider Scribe Attestation: All medical record entries made by the Scribe were at my direction and personally dictated by me. I have reviewed the chart and agree that the record accurately reflects my personal performance of the history, physical exam, medical decision making, and the department course for this patient. I have also personally directed, reviewed, and agree with the discharge instructions and d isposition. Disposition - Clinical Impression Clinical Impression: TIA (transient ischemic attack) - Patient ED Disposition Is Patient to be Admitted: Yes Doctor Will See Patient In The: Hospital - Disposition Disposition: Transfer of Care Disposition Time: 10:20 Condition: FAIR Instructions: Transient Ischemic Attack Forms: [employer] (Canadian) - Pt Status Changed To: Hospital Disposition Of: Observation - POA Present On Arrival: None
[2018-09-10 08:28] LABS: LDL CHOLESTEROL 85 mg/dL (0-129)
[2018-09-10] MEDS ORDERED: Sodium Chloride 0.9% 50 ML IV ONE (08:33)
[2018-09-10] MEDS ORDERED: Iodixanol 320 MG/ML 100 ML BOTTLE IV ONE (08:33)
--- NOTE | 2018-09-10 08:56 | CT ---
Date of service: 09/10/2018 PROCEDURE: CT HEAD WITHOUT CONTRAST. HISTORY: code stroke COMPARISON: 01/08/2018. TECHNIQUE: Axial computed tomography images were obtained through the head/brain without intravenous contrast. Supplemental Coronal and Sagittal projections created and reviewed. Radiation dose: Total exam DLP = <inf_radiation_dlp> mGy-cm. This CT exam was performed using one or more of the following dose reduction techniques: Automated exposure control, adjustment of the mA and/or kV according to patient size, and/or use of iterative reconstruction technique. FINDINGS: HEMORRHAGE: No intracranial hemorrhage. BRAIN: No mass effect or edema. No atrophy or chronic microvascular ischemic changes. VENTRICLES: Unremarkable. No hydrocephalus. CALVARIUM: Unremarkable. PARANASAL SINUSES: Unremarkable as visualized. No significant inflammatory changes. MASTOID AIR CELLS: Unremarkable as visualized. No inflammatory changes. OTHER FINDINGS: None. IMPRESSION: No acute intracranial abnormalities. No significant findings to account for the clinical presentation. No significant interval change compared to the prior examination(s). Code stroke protocol: Study completed 07:48. Interpretation finalized and available for review 08:03.
--- NOTE | 2018-09-10 09:50 | CT ---
Date of service: 09/10/2018 PROCEDURE: CTA HEAD AND NECK WITH CONTRAST HISTORY: Left leg weakness COMPARISON: None available. TECHNIQUE: Initial noncontrast head CT was performed. Subsequently, CT angiogram of the head and neck were performed after the intravenous administration of 80 mL of Omnipaque 350. Contiguous 1.5mm thick images were obtained in the axial plane of the neck. 2-D coronal and sagittal MPR images were obtained. Imaging postprocessing was performed with 3-D images also obtained. A delayed contrast head CT was also obtained. This CT exam was performed using one or more of the following dose reduction techniques: Automated exposure control, adjustment of the mA and/or kV according to patient size, and/or use of iterative reconstruction technique. Contrast dose: 99 cc Visipaque 320 Radiation dose: Total exam DLP = 494.26 mGy-cm. FINDINGS: HEAD: Right: The intracranial internal carotid artery, and anterior and middle cerebral arteries are widely patent. Left: The intracranial internal carotid artery, and anterior and middle cerebral arteries are widely patent. Posterior circulation: The visualized intracranial vertebral arteries, basilar artery and posterior cerebral arteries are widely patent. There is no endoluminal filling defect to suggest thrombus. There is no intracranial saccular aneurysm. NECK: There is a three vessel aortic arch. There is no stenosis at the origins of the great vessels at the level of the aortic arch. No atherosclerotic calcification or mural plaque present. Right Carotid: On the right, the common carotid, internal carotid and external carotid arteries are widely patent. There is no hemodynamically significant stenosis in the internal carotid artery by NASCET criteria. Left Carotid: On the left, the common carotid, internal carotid and external carotid arteries are widely patent. There is no hemodynamically significant stenosis in the internal carotid artery by NASCET criteria. The vertebral arteries are widely patent. The visualized soft tissues of the neck are normal. The visualized brain and cervical spine are within normal limits. The lung apices are clear. IMPRESSION: 1. No evidence of endoluminal thrombus,occlusion or definite significant stenosis in the intracranial arteries. 2. No evidence of hemodynamically significant stenosis in the internal carotid arteries. 3. Patent bilateral vertebral arteries.
--- NOTE | 2018-09-10 12:25 | RAD ---
Date of service: 09/10/2018 HISTORY: Code Stroke COMPARISON: 03/23/2018 FINDINGS: LUNGS: No active pulmonary disease. PLEURA: No significant pleural effusion identified, no pneumothorax apparent. CARDIOVASCULAR: No atherosclerotic calcification present Normal. OSSEOUS STRUCTURES: No significant abnormalities. VISUALIZED UPPER ABDOMEN: Normal. OTHER FINDINGS: None. IMPRESSION: No active disease. No significant interval change compared to the prior examination(s).
--- NOTE | 2018-09-10 12:44 | MRI ---
Date of service: 09/10/2018 PROCEDURE: MRI BRAIN WITHOUT CONTRAST HISTORY: TIA COMPARISON: CT head without contrast performed earlier the same day. TECHNIQUE: Multiplanar, multisequence MR images of the brain were obtained without intravenous contrast enhancement. FINDINGS: HEMORRHAGE: None DWI: No evidence of an acute or early subacute infarction. BRAIN PARENCHYMA: There are few scattered tiny T2/FLAIR hyperintense foci in the bifrontal subcortical white matter. There is no mass, mass effect or abnormal extra-axial fluid collection. There is mild cerebellar tonsillar ectopia. VENTRICLES: There is mild age advanced global parenchymal volume loss and proportionate enlargement of the ventricles and cortical sulci. CRANIUM: There is normal bone marrow signal pattern. ORBITS: Grossly unremarkable. PARANASAL SINUSES/MASTOIDS: There are retention cysts/polyps in both maxillary sinus VASCULAR SYSTEM: There are normal signal voids in the larger intracranial arteries. OTHER FINDINGS: None. IMPRESSION: No acute intracranial abnormality. Minimal bifrontal white matter changes are strictly nonspecific. The differential considerations include migraine headache effect, gliosis, early chronic microvascular changes, Lyme disease, vasculitis and demyelinating disease including multiple sclerosis. Clinical follow-up is advised. Mild cerebellar tonsillar ectopia. Retention cysts/polyps in both maxillary sinuses.
--- NOTE | 2018-09-10 13:33 | CP.PCM.CON ---
History of Present Illness - History of Present Illness History of Present Illness: Neurology consult dictated. NIH stroke scale 0. in brief, 38 yr old male who had a spell of leg weakness that resolved and is now back to baseline. MRI Brain is normal with no sign of acute stroke, CTA head and neck is normal as well. ROS: negative. A/p: Patient with event not likely to be TIA, ready for discharge. Plan: 1. Continue aspirin 2. Neurology follow up with our office in 2 weeks - dr baca Thank you Past Patient History - Infectious Disease Hx of Infectious Diseases: None - Tetanus Immunizations Tetanus Immunization: Unknown - Past Medical History & Family History Past Medical History?: Yes - Past Social History Smoking Status: Never Smoked - CARDIAC Hx Atrial Fibrillation: No Hx Cardia Arrhythmia: No Hx Hypercholesterolemia: No - PULMONARY Hx Respiratory Disorders: No - NEUROLOGICAL Hx Migraine: Yes - HEENT Hx HEENT Problems: No - RENAL Hx Chronic Kidney Disease: No - ENDOCRINE/METABOLIC Hx Endocrine Disorders: Yes (pre diabetic according to pt) - HEMATOLOGICAL/ONCOLOGICAL Hx Human Immunodeficiency Virus (HIV): No - INTEGUMENTARY Hx Dermatological Problems: No - MUSCULOSKELETAL/RHEUMATOLOGICAL Hx Musculoskeletal Disorders: No Hx Falls: No - GASTROINTESTINAL Hx Diverticulitis: Yes - GENITOURINARY/GYNECOLOGICAL Hx Genitourinary Disorders: No - PSYCHIATRIC Hx Psychophysiologic Disorder: No Hx Substance Use: No - SURGICAL HISTORY Hx Surgeries: No Other/Comment: +COLONOSCOPY - ANESTHESIA Hx Anesthesia: No Hx Anesthesia Reactions: No Meds Home Medications: Home Medication List Medication Instructions Recorded Confirmed Type Aspirin [Low Dose Aspirin EC] 81 mg PO DAILY #30 tablet. 09/10/18 Rx Atorvastatin [Lipitor] 10 mg PO DAILY #30 tab 09/10/18 Rx Allergies/Adverse Reactions: Allergies Allergy/AdvReac Type Severity Reaction Status Date / Time FISH Allergy RASH Verified 09/10/18 09:01 Fish Containing Products Allergy RASH Verified 09/10/18 09:01 - Medications Medications: Current Medications Acetaminophen (Tylenol 325mg Tab) 650 mg PO Q6 PRN PRN Reason: Pain, Mild (1-3) Acetaminophen (Tylenol 325mg Tab) 650 mg PO Q6 PRN PRN Reason: Fever >100.4 F Enoxaparin Sodium (Lovenox) 40 mg SC DAILY BRENDA; Protocol Sodium Chloride (Sodium Chloride 0.9%) 1,000 mls @ 100 mls/hr IV .Q10H BRENDA Last Admin: 09/10/18 08:05 Dose: 100 mls/hr Results - Vital Signs Recent Vital Signs: Last Vital Signs Temp 98.2 F 09/10/18 08:01 Pulse 70 09/10/18 09:19 Resp 16 09/10/18 09:19 BP 128/77 09/10/18 09:19 Pulse Ox 100 09/10/18 10:38 - Labs Result Diagrams: 09/10/18 07:50 09/10/18 07:50 Labs: Laboratory Results - last 24 hr 09/10/18 09/10/18 09/10/18 07:48 07:50 07:50 WBC 6.8 RBC 5.32 Hgb 14.9 Hct 44.5 MCV 83.5 MCH 28.0 MCHC 33.6 RDW 13.7 Plt Count 305 MPV 9.3 Neut % (Auto) 50.4 Lymph % (Auto) 35.9 Bent % (Auto) 9.9 Eos % (Auto) 3.4 Baso % (Auto) 0.4 Neut # (Auto) 3.4 Lymph # (Auto) 2.4 Bent # (Auto) 0.7 Eos # (Auto) 0.2 Baso # (Auto) 0.0 PT INR APTT Sodium 140 Potassium 4.2 Chloride 103 Carbon Dioxide 24 Anion Gap 17 BUN 22 H Creatinine 0.8 Est GFR ( Amer) > 60 Est GFR (Non-Af Amer) > 60 POC Glucose (mg/dL) 100 Random Glucose 119 H Calcium 9.1 Total Bilirubin 0.3 AST 21 ALT 27 Alkaline Phosphatase 103 Troponin I < 0.0120 Total Protein 7.2 Albumin 3.8 Globulin 3.4 Albumin/Globulin Ratio 1.1 Triglycerides 403 H D Cholesterol 156 LDL Cholesterol Direct 85 HDL Cholesterol 28 L Blood Type Antibody Screen BBK History Checked 09/10/18 09/10/18 07:50 07:50 WBC RBC Hgb Hct MCV MCH MCHC RDW Plt Count MPV Neut % (Auto) Lymph % (Auto) Bent % (Auto) Eos % (Auto) Baso % (Auto) Neut # (Auto) Lymph # (Auto) Bent # (Auto) Eos # (Auto) Baso # (Auto) PT 10.4 INR 0.9 APTT 32.7 Sodium Potassium Chloride Carbon Dioxide Anion Gap BUN Creatinine Est GFR ( Amer) Est GFR (Non-Af Amer) POC Glucose (mg/dL) Random Glucose Calcium Total Bilirubin AST ALT Alkaline Phosphatase Troponin I Total Protein Albumin Globulin Albumin/Globulin Ratio Triglycerides Cholesterol LDL Cholesterol Direct HDL Cholesterol Blood Type O POSITIVE Antibody Screen Negative BBK History Checked No verified bt
--- NOTE | 2018-09-10 13:34 | CP.PCM.HP ---
History of Present Illness - History of Present Illness History of Present Illness: 38 y/o M with a PMHx of diverticulitis, pre-diabetes and hypertriglyceridemia presented to ED complaining of L side weakness that occurred around 6 am today. Pt explains his left arm and left leg were weak after he used the bathroom. W hile he was lying on bed, pt was unable to move his L side; hence, he called 911. However, he was unable to speak clearly. Pt reports previous episodes resolved after several minutes but they occurred again and called 911 again and was able to communicate with print operator. Pt also reported blurry vision with episodes. No previous episodes. No recent trauma. D: [facility] NKDA Meds: none PMHx: Pre-diabetes, diverticulitis and hypertrigliceridemia PSHx: denied FHx: Father with DM2. SHx: denied tobacco, alcohol or rec drugs. Present on Admission - Present on Admission Any Indicators Present on Admission: No Review of Systems - Constitutional Constitutional: Weakness. absent: Anorexia, Chills, Fever - EENT Nose/Mouth/Throat: absent: Nasal Congestion, Sore Throat, Neck Pain, Neck Mass - Cardiovascular Cardiovascular: absent: Chest Pain, Chest Pain at Rest, Dyspnea - Respiratory Respiratory: absent: Cough, Dyspnea, Hemoptysis, Dyspnea on Exertion - Gastrointestinal Gastrointestinal: absent: Abdominal Pain, Belching, Bloating Past Patient History - Infectious Disease Hx of Infectious Diseases: None - Tetanus Immunizations Tetanus Immunization: Unknown - Past Medical History & Family History Past Medical History?: Yes - Past Social History Smoking Status: Never Smoked - CARDIAC Hx Atrial Fibrillation: No Hx Cardia Arrhythmia: No Hx Hypercholesterolemia: No - PULMONARY Hx Respiratory Disorders: No - NEUROLOGICAL Hx Migraine: Yes - HEENT Hx HEENT Problems: No - RENAL Hx Chronic Kidney Disease: No - ENDOCRINE/METABOLIC Hx Endocrine Disorders: Yes (pre diabetic according to pt) - HEMATOLOGICAL/ONCOLOGICAL Hx Human Immunodeficiency Virus (HIV): No - INTEGUMENTARY Hx Dermatological Problems: No - MUSCULOSKELETAL/RHEUMATOLOGICAL Hx Musculoskeletal Disorders: No Hx Falls: No - GASTROINTESTINAL Hx Diverticulitis: Yes - GENITOURINARY/GYNECOLOGICAL Hx Genitourinary Disorders: No - PSYCHIATRIC Hx Psychophysiologic Disorder: No Hx Substance Use: No - SURGICAL HISTORY Hx Surgeries: No Other/Comment: +COLONOSCOPY - ANESTHESIA Hx Anesthesia: No Hx Anesthesia Reactions: No Meds Home Medications: Home Medication List Medication Instructions Recorded Confirmed Type Aspirin [Low Dose Aspirin EC] 81 mg PO DAILY #30 tablet. 09/10/18 Rx Atorvastatin [Lipitor] 10 mg PO DAILY #30 tab 09/10/18 Rx Allergies/Adverse Reactions: Allergies Allergy/AdvReac Type Severity Reaction Status Date / Time FISH Allergy RASH Verified 09/10/18 09:01 Fish Containing Products Allergy RASH Verified 09/10/18 09:01 Physical Exam - Constitutional Appears: Well, No Acute Distress - Head Exam Head Exam: NORMAL INSPECTION - Eye Exam Eye Exam: EOMI, Normal appearance - ENT Exam ENT Exam: Mucous Membranes Moist - Neck Exam Neck exam: Positive for: Full Rom, Normal Inspection - Respiratory Exam Respiratory Exam: Clear to Auscultation Bilateral, NORMAL BREATHING PATTERN - Cardiovascular Exam Cardiovascular Exam: REGULAR RHYTHM, +S1, +S2 - GI/Abdominal Exam GI & Abdominal Exam: Soft. absent: Distended, Guarding, Tenderness - Extremities Exam Extremities exam: Positive for: full ROM, normal capillary refill, normal inspection, pedal pulses present. Negative for: calf tenderness, pedal edema, tenderness - Back Exam Back exam: absent: CVA tenderness (L), CVA tenderness (R) - Neurological Exam Neurological exam: Alert, CN II-XII Intact, Normal Gait, Oriented x3, Reflexes Normal - Psychiatric Exam Psychiatric exam: Normal Mood Results - Vital Signs Recent Vital Signs: Last Vital Signs Temp 98.2 F 09/10/18 08:01 Pulse 70 09/10/18 09:19 Resp 16 09/10/18 09:19 BP 128/77 09/10/18 09:19 Pulse Ox 100 09/10/18 10:38 - Labs Result Diagrams: 09/10/18 07:50 09/10/18 07:50 Labs: Laboratory Results - last 24 hr 09/10/18 09/10/18 09/10/18 07:48 07:50 07:50 WBC 6.8 RBC 5.32 Hgb 14.9 Hct 44.5 MCV 83.5 MCH 28.0 MCHC 33.6 RDW 13.7 Plt Count 305 MPV 9.3 Neut % (Auto) 50.4 Lymph % (Auto) 35.9 Floyd % (Auto) 9.9 Eos % (Auto) 3.4 Baso % (Auto) 0.4 Neut # (Auto) 3.4 Lymph # (Auto) 2.4 Floyd # (Auto) 0.7 Eos # (Auto) 0.2 Baso # (Auto) 0.0 PT INR APTT Sodium 140 Potassium 4.2 Chloride 103 Carbon Dioxide 24 Anion Gap 17 BUN 22 H Creatinine 0.8 Est GFR ( Amer) > 60 Est GFR (Non-Af Amer) > 60 POC Glucose (mg/dL) 100 Random Glucose 119 H Calcium 9.1 Total Bilirubin 0.3 AST 21 ALT 27 Alkaline Phosphatase 103 Troponin I < 0.0120 Total Protein 7.2 Albumin 3.8 Globulin 3.4 Albumin/Globulin Ratio 1.1 Triglycerides 403 H D Cholesterol 156 LDL Cholesterol Direct 85 HDL Cholesterol 28 L Blood Type Antibody Screen BBK History Checked 09/10/18 09/10/18 07:50 07:50 WBC RBC Hgb Hct MCV MCH MCHC RDW Plt Count MPV Neut % (Auto) Lymph % (Auto) Floyd % (Auto) Eos % (Auto) Baso % (Auto) Neut # (Auto) Lymph # (Auto) Floyd # (Auto) Eos # (Auto) Baso # (Auto) PT 10.4 INR 0.9 APTT 32.7 Sodium Potassium Chloride Carbon Dioxide Anion Gap BUN Creatinine Est GFR ( Amer) Est GFR (Non-Af Amer) POC Glucose (mg/dL) Random Glucose Calcium Total Bilirubin AST ALT Alkaline Phosphatase Troponin I Total Protein Albumin Globulin Albumin/Globulin Ratio Triglycerides Cholesterol LDL Cholesterol Direct HDL Cholesterol Blood Type O POSITIVE Antibody Screen Negative BBK History Checked No verified bt Assessment & Plan - Assessment and Plan (Free Text) Assessment: 38 y/o M with a PMHx of pre-diabetes and hypertriglyceridemia presented to ED with transient L upper and lower extremity weakness, admitted for observation. PLAN: >Left side weakness --Resolved --Likely Transient Ischemic Attack vs seizures. --Head CT w/ NO intracranial abnormalities --CTA of head and neck unremarkable --MRI of brain normal except for minimal bifrontal white matter changes. --Neurology evaluated patient, pt will f/u with Dr Sotomayor as outpatient. --Pt is discharged home with prescriptions for outpatient MRI Brain with hanny and EEG, will f/u with Dr Sotomayor and PCP as outpatient. --Rx for aAspirin 81mg and Lipitor 10mg PO daily givent to pt. >Pre-diabetes --Lifestyle modifications reinforced. --D/C home >Hyperlipidemia --Rx for lipitor given --Lifestyle modifications reinforced. --D/C home Case discussed with Dr Majo Myles PGY-2 - Date & Time Date: 09/10/18 Time: 14:00
[2018-09-10 15:43] VITALS: BP 128/71; PULSE 75; O2SAT 97
[2018-09-11] MEDS ORDERED: Enoxaparin 40 mg Syringe SC SCH (09:00)
--- NOTE | 2018-09-11 10:18 | CARD ---
APPROVED REPORT Date of service: 09/10/2018 EKG Measurement Heart [id number] <Conclusion> Normal sinus rhythm Normal ECG
--- NOTE | 2018-09-12 09:35 | CON ---
DATE: 09/10/2018 NEUROLOGY CONSULTATION Called by Dr. Beal in [facility] Emergency Room. HISTORY OF PRESENT ILLNESS: The patient is a 38-year-old male who was at home today sleeping, when he went to the bathroom around 6 a.m. and went back to sleep. As he lay in bed sliding up the wall, he started to feel left sided weakness slowly starting on progressing to leg at the point where he could reach his thumb and then he was able to cough which resolved his numbness and weakness, tried to call 911, and experienced some dysarthria and after 20 minutes he experiences the symptom again, called 911 again and EMS was on their way brought him to ER. He also had dysarthria and aphasia. On examination in the emergency room, there was no aphasia noted. There was some mild left sided weakness that resolved after getting CAT scan. On my exam, the patient states that he felt that his left side was weak and that he had some difficulty speaking. He also says that this has never happened before. The patient denies any sick contacts, any recent stress, any insomnia, any motor vehicle accident, any head trauma, or any passing out image. REVIEW OF SYSTEMS: Malaise, fatigue, weakness, and headache. No nausea, vomiting, diarrhea, or visual symptoms. PAST MEDICAL HISTORY: Prediabetes and diverticulitis. PAST SURGICAL HISTORY: None. SOCIAL HISTORY: The patient is currently employed. No tobacco. Occasional alcohol. ALLERGIES: NO KNOWN DRUG ALLERGIES. PHYSICAL EXAMINATION: GENERAL: The patient is alert and oriented x3. HEENT: Pupils are equal, round, reactive to light. Extraocular muscles are intact. Cranial nerves II through XII are normal. NEUROLOGIC: Mini mental status is 30/30. He can name and repeat. Intact fine touch, pin, position sense. Cerebellar; [id number] shows no dysmetria. Motor strength normal 5/5 upper limb bilaterally. Sensory is intact to f Gait is normal. Reflexes are +1 and +2 bilaterally. Toes are downgoing. There is no clonus. LABORATORY DATA: White count 6.8, hemoglobin 40.9, hematocrit 44.5, and platelets 305. Sodium 140, potassium 4.2, bicarb 103, chloride 24, BUN 22, creatinine 0.8, and glucose 119. Coags are normal. LFTs were normal. CAT was normal. MRI of the brain was done, it was normal. CT of head and neck is completely normal with paravertebral and intracranial arteries. IMPRESSION: This is a 38-year-old male who did not have TIA as per MRI being normal. The patient does not have any risk factors either, however he may have had a small seizure. MRI of the brain with and without gadolinium and EEG. Thank you for this interesting consultation. Dr. Beal will follow up if admitted. Shey Sotomayor MD MTDJessica
== END 2018-09-10 17:45 | disposition home or self-care (01) ==
LOC: H.ER 07:18 → H.ERHOLD 10:34 → H.TEL 12:30
PROVIDERS: ADMIT Hospitalist; ATTEND Hospitalist
DX: R53.1 Weakness (principal); E78.1 Pure hyperglyceridemia; E78.5 Hyperlipidemia, unspecified; R47.01 Aphasia; R47.1 Dysarthria and anarthria; Z79.82 Long term (current) use of aspirin; Z79.899 Other long term (current) drug therapy; Z83.3 Family history of diabetes mellitus; G43.909 Migraine, unspecified, not intractable, without status migrainosus; R73.03 Prediabetes; H53.8 Other visual disturbances; R05 Cough
CPT/HCPCS: 70450; 70496; 70498; 70551; 71045; 80053; 80061; 82948; 83036; 84484; 85025; 85610; 85730; 86850; 86900; 93005; 96360; 96361; 97161; 99284; G0378; G8978; G8979; J7030; Q9967

== ENCOUNTER 2018-09-15 15:13 | Emergency (ER) | payer SELFPAY ==
[2018-09-15 15:14] VITALS: BMI 29.9
[2018-09-15 15:40] VITALS: RESP 18; TEMP 98.3; O2SAT 98
[2018-09-15] MEDS ORDERED: Tdap Vaccine 0.5 ml Vial (10-64 yrs) IM ONE (16:15)
[2018-09-15] MEDS: Tdap Vaccine 0.5 ml Vial (10-64 yrs) IM ONE (16:20)
[2018-09-15] MEDS ORDERED: Lidocaine 1% (10 ml) Inj INFIL ONE (16:21)
--- NOTE | 2018-09-15 16:32 | CT ---
Date of service: 09/15/2018 PROCEDURE: CT HEAD WITHOUT CONTRAST. HISTORY: Trauma COMPARISON: Comparison made with prior CT scan and MRI of the brain both dated 2018. TECHNIQUE: Axial computed tomography images were obtained through the head/brain without intravenous contrast. Radiation dose: Total exam DLP = 872.53 mGy-cm. This CT exam was performed using one or more of the following dose reduction techniques: Automated exposure control, adjustment of the mA and/or kV according to patient size, and/or use of iterative reconstruction technique. FINDINGS: HEMORRHAGE: No acute parenchymal, subarachnoid nor extra-axial hemorrhage. BRAIN: No evidence of large acute infarct. Previously noted very tiny nonspecific foci of increased T2 signal scattered about the bifrontal subcortical white matter not appreciated on this study due to very small size. Slightly low lying left-sided cerebellar tonsil VENTRICLES: The ventricles are prominent though do not appear to be under tension. Findings may be an anatomic variant . CALVARIUM: There are no acute calvarial fractures. There may be some mild left supraorbital soft tissue- scalp swelling. PARANASAL SINUSES: Unremarkable as visualized. No significant inflammatory changes. MASTOID AIR CELLS: Unremarkable as visualized. No inflammatory changes. OTHER FINDINGS: None. IMPRESSION: No evidence of acute intracranial hemorrhage. Suspect mild left supraorbital soft tissue swelling. Prominent ventricles of possibly representing an anatomic
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
[2018-09-15 17:16] VITALS: BP 133/90; PULSE 66
== END 2018-09-15 17:21 | disposition home or self-care (01) ==
LOC: H.ER 15:13
DX: S09.90XA Unspecified injury of head, initial encounter (principal); S01.81XA Laceration without foreign body of other part of head, initial encounter; Y93.55 Activity, bike riding; Y92.410 Unspecified street and highway as the place of occurrence of the external cause

== ENCOUNTER 2018-10-22 16:37 | Emergency (ER) | payer SELFPAY ==
[2018-10-22 16:37] VITALS: BMI 29.9
[2018-10-22] MEDS ORDERED: Tdap Vaccine 0.5 ml Vial (10-64 yrs) IM ONE ×2 (17:39→18:38)
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
--- NOTE | 2018-10-22 18:41 | RAD ---
Date of service: 10/22/2018 PROCEDURE: Left Femur Radiographs. HISTORY: pain COMPARISON: None. TECHNIQUE: AP and Lateral Radiographs of the left femur. 4 views obtained. FINDINGS: FEMUR: Normal. No fracture. SOFT TISSUES: Normal. OTHER FINDINGS: None. IMPRESSION: Unremarkable radiographs of the left femur.
--- NOTE | 2018-10-22 18:42 | RAD ---
Date of service: 10/22/2018 PROCEDURE: Radiographs of the left clavicle. HISTORY: pain COMPARISON: None. TECHNIQUE: 2 views obtained. FINDINGS: LEFT CLAVICLE: No fracture or focal lesion. JOINTS: No dislocation or subluxation left acromioclavicular or glenohumeral joints. Degenerative changes are identified moderate at the acromioclavicular joint with none at the glenohumeral joint. SOFT TISSUES: Grossly unremarkable. OTHER FINDINGS: None. IMPRESSION: Degenerative changes seen the acromioclavicular joint with left clavicle otherwise unremarkable.
--- NOTE | 2018-10-22 18:43 | RAD ---
Date of service: 10/22/2018 HISTORY: dyspnea COMPARISON: Portable chest 09/10/2018. TECHNIQUE: Chest PA and lateral views FINDINGS: LUNGS: No active pulmonary disease. PLEURA: No significant pleural effusion identified. No pneumothorax apparent. CARDIOVASCULAR: No aortic atherosclerotic calcification present. Normal cardiac size. No pulmonary vascular congestion. OSSEOUS STRUCTURES: No significant abnormalities. VISUALIZED UPPER ABDOMEN: Normal. OTHER FINDINGS: None. IMPRESSION: No interval acute cardiopulmonary disease appreciated.
--- NOTE | 2018-10-22 18:43 | RAD ---
Date of service: 10/22/2018 PROCEDURE: Radiographs of the left tibia and fibula. HISTORY: pain COMPARISON: None available. TECHNIQUE: Frontal and lateral views obtained. 2 views obtained. FINDINGS: BONES: No fracture or destructive lesion. JOINT SPACES: Unremarkable. OTHER FINDINGS: None. IMPRESSION: Unremarkable radiographs of the left tibia and fibula.
[2018-10-22 21:19] VITALS: BP 133/79; PULSE 79; RESP 17; TEMP 9898.1; O2SAT 100
--- NOTE | 2018-10-23 11:29 | CT ---
Date of service: 10/22/2018 PROCEDURE: CT Cervical Spine without contrast HISTORY: neck pain COMPARISON: None available. TECHNIQUE: Axial computed tomography images were obtained of the cervical spine without the use of intravenous contrast. Coronal and sagittal reformatted images were created and reviewed. Radiation dose: Total exam DLP = 363.64 mGy-cm. This CT exam was performed using one or more of the following dose reduction techniques: Automated exposure control, adjustment of the mA and/or kV according to patient size, and/or use of iterative reconstruction technique. FINDINGS: VERTEBRAE: No fracture. Normal alignment. No destructive bony lesion. DISCS/SPINAL CANAL/NEURAL FORAMINA: No significant central canal or neural foraminal stenosis. Disc heights are adequately preserved. At C3-4, there is a small central disc protrusion without stenosis. No neural foraminal stenosis. At C4-5, no central canal or neural foraminal stenosis appreciable. At C5-6, no central canal or neural foraminal stenosis appreciated. At C6-7 and C7-T1, no central canal or neural foraminal stenosis appreciated. PARASPINAL SOFT TISSUES: Unremarkable. OTHER FINDINGS: None. IMPRESSION: No fracture or spondylolisthesis identified. Small central protrusion C3-4 without significant stenosis. Preliminary report provided by [facility], 10/22/2018, 8:10 p.m..
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
--- NOTE | 2018-10-23 11:37 | CT ---
Date of service: 10/22/2018 PROCEDURE: CT HEAD WITHOUT CONTRAST. HISTORY: headache COMPARISON: Unenhanced head CT 09/07/2018. TECHNIQUE: Axial computed tomography images were obtained through the head/brain without intravenous contrast. Radiation dose: Total exam DLP = 881.45 mGy-cm. This CT exam was performed using one or more of the following dose reduction techniques: Automated exposure control, adjustment of the mA and/or kV according to patient size, and/or use of iterative reconstruction technique. FINDINGS: HEMORRHAGE: No intracranial hemorrhage. BRAIN: Normal block-white matter differentiation and density are appreciated throughout the cerebrum and cerebellum with the brainstem appearing unremarkable as well. There is no mass effect. There is no suspicious extra-axial fluid collection and the midline brain anatomy appears diffusely unremarkable. VENTRICLES: Unremarkable. No hydrocephalus. CALVARIUM: No destructive bony lesion or displaced fracture identified including through the skullbase. PARANASAL SINUSES: Trace right maxillary sinus disease appreciated acutely. MASTOID AIR CELLS: Unremarkable as visualized. No inflammatory changes. OTHER FINDINGS: None. IMPRESSION: Stable unremarkable unenhanced head CT. Trace maxillary sinus disease appreciated acutely. Concordant preliminary report from [facility], 10/22/2018, 8:02 p.m..
== END 2018-10-22 21:18 | disposition home or self-care (01) ==
LOC: H.ER 16:37
DX: S09.90XA Unspecified injury of head, initial encounter (principal); S29.9XXA Unspecified injury of thorax, initial encounter; S01.312A Laceration without foreign body of left ear, initial encounter; W22.8XXA Striking against or struck by other objects, initial encounter; Y93.55 Activity, bike riding; E78.00 Pure hypercholesterolemia, unspecified; R73.03 Prediabetes; Z86.73 Personal history of transient ischemic attack (TIA), and cerebral infarction without residual deficits